=== PATIENT | male | born 1940 | race Caucasian/White ===

== ENCOUNTER 2020-08-19 09:43 | Outpatient (REF) | payer MEDICARE, SELFPAY ==
[2020-08-19 10:37] LABS: Blood Urea Nitrogen 13 mg/dL (9-16); Estimated Glomerular Filt Rate > 60
[2020-08-19 11:00] LABS: Prostate Specific Antigen 0.49 ng/mL (<0.05-4.0)
== END 2020-08-19 09:44 | disposition home or self-care (01) ==
LOC: HO.10HDL 09:43
PROVIDERS: Visit Provider Urology
DX: C61 Malignant neoplasm of prostate (principal)
CPT/HCPCS: 82565; 84153; 84520

== ENCOUNTER → 2020-08-26 09:43 | Outpatient (REF) | payer MEDICARE, SELFPAY ==
--- NOTE | 2020-08-26 | NM_ITS ---
EXAMINATION: [place] BONE SCAN OF THE WHOLE BODY CLINICAL INFORMATION: Prostate cancer. COMPARISON: The previous bone scan dated 04/03/2020 is available for comparison. No recent radiographs are available for comparison. TECHNIQUE: Multiple gamma scintillation camera images of the whole body were performed 3 hours following the intravenous administration of 25 mCi Tc-99m MDP. FINDINGS: In the head, no significant abnormalities are present. In the thoracic cage and upper extremities, there is mildly increased activity in the acromioclavicular and sternoclavicular joints bilaterally and at the glenohumeral articulation of the left shoulder. In the spine, no significant abnormalities are present. In the pelvis, no significant abnormalities are present. In the lower extremities, no significant abnormalities are present. No other definite bony abnormalities are noted. The urinary bladder and faint visualization of both kidneys are noted. Compared to the previous bone scan dated 04/03/2020 some prominence of activity in the humeral heads bilaterally and greater femoral trochanters on the prior study is not evident on the current scan. Otherwise the scan appearance is unchanged. WI/[place] bone scan whole body IMPRESSION: Mild nonspecific abnormalities are noted as described above and these are all likely arthritic or traumatic in etiology. None of these abnormalities is strongly suspicious for metastatic disease.
== END ==
LOC: HO.NUCMED 09:43
PROVIDERS: PCP Internal Medicine; Visit Provider Urology
DX: C61 Malignant neoplasm of prostate (principal)
CPT/HCPCS: 78306; A9503

== ENCOUNTER 2020-09-02 08:48 | Outpatient (REF) | payer MEDICARE, SELFPAY ==
--- NOTE | 2020-09-02 08:53 | CT_ITS ---
EXAMINATION: CT ABDOMEN AND PELVIS WITH CONTRAST CLINICAL INFORMATION: Prostate cancer COMPARISON: Previous CT scan of the abdomen and pelvis December 2018 TECHNIQUE: Multidetector volumetric images were obtained from the superior aspect of the liver through the pubic symphysis following administration 85 mL of Omnipaque 350 intravenous contrast. Sagittal and coronal reformatted images were obtained on the technologist's workstation. Oral contrast: Yes This CT examination was performed using dose optimization techniques as appropriate, variously including the following: *Automated exposure control *Adjustment of mA and/or kV according to patient size (this includes techniques or standardized protocols for targeted exams where dose is matched to indication/reason for exam; i.e. extremities or head) *Use of iterative reconstruction technique DLP: 573 mGy-cm FINDINGS: LUNG BASES: The visualized lung bases are unremarkable. LIVER, GALLBLADDER, AND BILIARY TREE: There is a 2 cm cyst in the lateral segment of the left lobe of the liver that is stable. The liver is otherwise unremarkable. There are gallstones in the gallbladder. There is no biliary duct dilatation. PANCREAS: Unremarkable. SPLEEN: Unremarkable. ADRENAL GLANDS: Unremarkable. KIDNEYS AND URETERS: There is a small 1 cm cyst in the upper pole of the left kidney. The kidneys are otherwise unremarkable. BLADDER: The bladder wall appears slightly trabeculated. The bladder is otherwise unremarkable. GASTROINTESTINAL TRACT: There is diverticulosis of the colon. There is stool throughout the colon questionable for constipation. There is a large right inguinal hernia containing small bowel. The appendix is not identified. The stomach is unremarkable. ABDOMINAL WALL: There is a large right inguinal hernia containing small bowel and fat. There is a small umbilical hernia containing fat. LYMPH NODES: There are no enlarged lymph nodes. There is no ascites. VASCULAR: There is evidence of atherosclerotic disease. There is mild ectasia of the mid abdominal aorta measuring 2.6 cm. No aneurysm is seen. PELVIC VISCERA: The prostate gland does not appear enlarged. Prostate gland measures 3 cm in AP and transverse dimension. OSSEOUS STRUCTURES: There is diffuse sclerotic bone disease. This is new from previous exam. No fracture is seen. CT/CT abdomen pelvis w con IMPRESSION: New diffuse sclerotic bone disease. The prostate gland does not appear enlarged. There is no lymphadenopathy. Large right inguinal hernia containing fat and small bowel. No evidence of obstruction. Diverticulosis and constipation. Stable liver and left renal cyst.
[2020-09-02] MEDS: iohexoL 350 MG/ML 100 ML INFUS..BTL 85 ML IV (11:46)
[2020-09-02] MEDS: Barium Sulfate Oral (Vanilla) 450 ML ORAL.SUSP 900 ML PO (11:47)
== END 2020-09-02 08:49 | disposition home or self-care (01) ==
LOC: HO.CT 08:48
PROVIDERS: PCP Internal Medicine; Visit Provider Urology
DX: C61 Malignant neoplasm of prostate (principal)
CPT/HCPCS: 74177; Q9967

== ENCOUNTER 2020-09-03 08:56 | Outpatient (REF) | payer MEDICARE, SELFPAY ==
[2020-09-03 10:04] LABS: MANUAL DIFF FLAG NO
[2020-09-03 10:18] LABS: Basophils Percent Auto 0.4 % (0-2); Eosinophils Absolute Auto 0.2 X10*3/uL (0.0-0.4); Eosinophils Percent Auto 3.2 % (0-4); Hematocrit 36.5 % (42-52); Hemoglobin 11.8 g/dl (14.0-18.0); Imm Gran Abs Auto 0.02 X10*3/uL (0.00-0.03); Imm Gran Pct Auto 0.4 % (0.0-0.4); Lymphocytes Absolute Auto 1.1 X10*3/uL (1.2-4.9); Lymphocytes Percent Auto 22.7 % (20-40); Mean Corpuscular HGB Conc 32.3 g/dl (31.0-36.0); Mean Corpuscular Hemoglobin 31.2 pg (27.0-33.0); Mean Corpuscular Volume 96.6 fL (80-98); Mean Platelet Volume 9.5 fL (9.4-12.4); Monocytes Absolute Auto 0.6 X10*3/uL (0.1-1.2); Monocytes Percent Auto 11.8 % (2-11); Neutrophils Absolute Auto 3.1 X10*3/uL (2.0-8.3); Neutrophils Percent Auto 61.5 % (45-73); Platelet Count 237 X10*3/uL (160-400); Red Blood Count 3.78 X10*6/uL (4.60-5.80); Red Cell Distribution Width 13.8 % (11.0-16.0)
[2020-09-03 10:37] LABS: Alanine Aminotransferase 14 U/L (0-40); Albumin Level 4.2 g/dL (3.5-5.0); Alkaline Phosphatase 116 U/L (39-117); Anion Gap 11 (12-20); Aspartate Amino Transferase 17 U/L (5-37); Bilirubin Total 0.6 mg/dL (0.0-1.0); Blood Urea Nitrogen 16 mg/dL (9-16); Calcium 8.6 mg/dL (8.4-10.2); Carbon Dioxide 27 mmol/L (22-29); Chloride 105 mmol/L (96-108); Estimated Glomerular Filt Rate > 60; Glucose Random 151 mg/dL (60-115); Potassium 4.4 mmol/l (3.3-5.1); Sodium 139 mmol/L (135-145); Total Protein 7.1 g/dL (6.5-8.0)
[2020-09-03 11:03] LABS: Prostate Specific Antigen 0.58 ng/mL (<0.05-4.0)
== END 2020-09-03 08:57 | disposition home or self-care (01) ==
LOC: HO.10HDL 08:56
PROVIDERS: Visit Provider Internal Medicine Hematology & Oncology
DX: C61 Malignant neoplasm of prostate (principal); C79.51 Secondary malignant neoplasm of bone
CPT/HCPCS: 36415; 80053; 84153; 85025

== ENCOUNTER → 2020-09-09 09:32 | Outpatient (BNVA) | payer MEDICARE, SELFPAY | PROVIDERS: PCP Internal Medicine; Visit Provider Urology | DX: C61 Malignant neoplasm of prostate (principal); C79.51 Secondary malignant neoplasm of bone | CPT/HCPCS: 99212; J9217 ==

== ENCOUNTER 2020-11-24 09:41 | Outpatient (REF) | payer MEDICARE, SELFPAY ==
[2020-11-24 11:16] LABS: MANUAL DIFF FLAG NO
[2020-11-24 11:40] LABS: Alanine Aminotransferase 16 U/L (0-40); Alkaline Phosphatase 91 U/L (39-117); Anion Gap 12 (12-20); Aspartate Amino Transferase 16 U/L (5-37); Bilirubin Total 0.5 mg/dL (0.0-1.0); Blood Urea Nitrogen 17 mg/dL (9-16); Calcium 8.6 mg/dL (8.4-10.2); Carbon Dioxide 26 mmol/L (22-29); Chloride 106 mmol/L (96-108); Cholesterol 132 mg/dL; Estimated Glomerular Filt Rate > 60; Glucose Random 131 mg/dL (60-115); Iron 62 mcg/dL (45-160); Percent Iron Saturation 19 % (15-50); Potassium 4.9 mmol/L (3.3-5.1); Sodium 139 mmol/L (135-145); Total Iron Binding Capacity 323 mcg/dL (228-428); Total Protein 7.5 g/dL (6.5-8.0); Unsaturated Iron Binding 261 ug/dL
[2020-11-24 11:44] LABS: Basophils Percent Auto 0.5 % (0-2); Eosinophils Absolute Auto 0.2 X10*3/uL (0.0-0.4); Eosinophils Percent Auto 3.8 % (0-4); Hematocrit 35.5 % (42-52); Hemoglobin 11.3 g/dl (14.0-18.0); Imm Gran Abs Auto 0.03 X10*3/uL (0.00-0.03); Imm Gran Pct Auto 0.5 % (0.0-0.4); Lymphocytes Absolute Auto 1.1 X10*3/uL (1.2-4.9); Mean Corpuscular HGB Conc 31.8 g/dl (31.0-36.0); Mean Corpuscular Hemoglobin 31.4 pg (27.0-33.0); Mean Corpuscular Volume 98.6 fL (80-98); Mean Platelet Volume 9.7 fL (9.4-12.4); Monocytes Absolute Auto 0.7 X10*3/uL (0.1-1.2); Monocytes Percent Auto 12.1 % (2-11); Neutrophils Absolute Auto 3.5 X10*3/uL (2.0-8.3); Neutrophils Percent Auto 64.1 % (45-73); Platelet Count 234 X10*3/uL (160-400); Red Cell Distribution Width 14.1 % (11.0-16.0); White Blood Count 5.5 X10*3/uL (4.8-10.8)
[2020-11-24 11:49] LABS: Prostate Specific Antigen 0.33 ng/mL (<0.05-4.0)
[2020-11-28 14:22] LABS: Testosterone, Total 10 ng/dL (250-1100)
== END 2020-11-24 09:42 | disposition home or self-care (01) ==
LOC: HO.10HDL 09:41
PROVIDERS: Absent Provider Internal Medicine; Referring Provider Internal Medicine Hematology & Oncology; Visit Provider Urology
DX: C61 Malignant neoplasm of prostate (principal); C79.51 Secondary malignant neoplasm of bone; I10 Essential (primary) hypertension
CPT/HCPCS: 36415; 80053; 82465; 83540; 84153; 84403; 85025

== ENCOUNTER → 2020-12-10 10:31 | Outpatient (BNVA) | payer MEDICARE, SELFPAY | PROVIDERS: PCP Internal Medicine; Visit Provider Urology | DX: Z13.89 Encounter for screening for other disorder (principal) | CPT/HCPCS: Q3014 ==

== ENCOUNTER → 2021-01-28 09:55 | Outpatient (REF) | payer MEDICARE, SELFPAY ==
--- NOTE | ~2021-01-28 | NM_ITS ---
EXAMINATION: [place] BONE SCAN OF THE WHOLE BODY CLINICAL INFORMATION: Prostate neoplasm. COMPARISON: CT bone windows from 09/02/2020 and previous bone scan from 08/26/2020. TECHNIQUE: Multiple gamma scintillation camera images of the whole body were performed 3 hours following the intravenous administration of 26 mCi Tc-99m MDP. FINDINGS: In the head, once again some generalized increase in the skull region. This is not changing from previous. In the thoracic cage and upper extremities, once again generalized increase here without focal abnormality in the thoracic cage region. The appearance of the upper extremities is unchanged. In the spine, once again some generalized increase in the spine but no focal abnormality and no increase from previous. In the pelvis, generalized uptake once again seen in the pelvis but no focal increased from previous. In the lower extremities, once again some areas of uptake seen in the metaphyseal region, similar to previous. There has been no change. No other definite bony abnormalities are noted. There is urinary activity and faint renal activity. [place] bone scan whole body IMPRESSION: Importantly, I feel this scan is not changing from previous exam. There is overall diffuse skeletal uptake with a paucity of renal uptake. When correlated with bone windows from most recent CTs, this is consistent with diffuse bony metastatic disease but again I feel this exam is not changing from 08/26/2020.
== END ==
LOC: HO.NUCMED 09:55
PROVIDERS: PCP Internal Medicine; Visit Provider Urology
DX: C61 Malignant neoplasm of prostate (principal); C79.51 Secondary malignant neoplasm of bone
CPT/HCPCS: 78306; A9503

== ENCOUNTER 2021-02-17 07:34 | Outpatient (REF) | payer MEDICARE, SELFPAY ==
[2021-02-17 10:27] LABS: MANUAL DIFF FLAG NO
[2021-02-17 10:35] LABS: Basophils Percent Auto 0.3 % (0-2); Eosinophils Absolute Auto 0.2 X10*3/uL (0.0-0.4); Eosinophils Percent Auto 3.6 % (0-4); Hematocrit 34.9 % (42-52); Hemoglobin 11.1 g/dl (14.0-18.0); Imm Gran Abs Auto 0.03 X10*3/uL (0.00-0.03); Imm Gran Pct Auto 0.5 % (0.0-0.4); Lymphocytes Percent Auto 17.3 % (20-40); Mean Corpuscular HGB Conc 31.8 g/dl (31.0-36.0); Mean Corpuscular Hemoglobin 31.3 pg (27.0-33.0); Mean Corpuscular Volume 98.3 fL (80-98); Mean Platelet Volume 9.8 fL (9.4-12.4); Monocytes Absolute Auto 0.9 X10*3/uL (0.1-1.2); Monocytes Percent Auto 14.6 % (2-11); Neutrophils Absolute Auto 3.8 X10*3/uL (2.0-8.3); Neutrophils Percent Auto 63.7 % (45-73); Platelet Count 214 X10*3/uL (160-400); Red Blood Count 3.55 X10*6/uL (4.60-5.80); Red Cell Distribution Width 13.8 % (11.0-16.0); White Blood Count 5.9 X10*3/uL (4.8-10.8)
[2021-02-17 10:53] LABS: Alanine Aminotransferase 15 U/L (0-40); Albumin Level 3.9 g/dL (3.5-5.0); Alkaline Phosphatase 89 U/L (39-117); Anion Gap 12 (12-20); Aspartate Amino Transferase 16 U/L (5-37); Bilirubin Total 0.6 mg/dL (0.0-1.0); Blood Urea Nitrogen 19 mg/dL (9-16); Carbon Dioxide 25 mmol/L (22-29); Chloride 105 mmol/L (96-108); Estimated Glomerular Filt Rate > 60; Glucose Random 110 mg/dL (60-115); Potassium 5.1 mmol/L (3.3-5.1); Sodium 137 mmol/L (135-145); Total Protein 7.9 g/dL (6.5-8.0)
[2021-02-20 17:46] LABS: Testosterone, Total 8 ng/dL (250-1100)
== END 2021-02-17 07:35 | disposition home or self-care (01) ==
LOC: HO.10HDL 07:34
PROVIDERS: Internal Medicine Hematology & Oncology; Visit Provider Urology
DX: Z12.5 Encounter for screening for malignant neoplasm of prostate (principal); C61 Malignant neoplasm of prostate; C79.51 Secondary malignant neoplasm of bone; N40.1 Benign prostatic hyperplasia with lower urinary tract symptoms; N13.8 Other obstructive and reflux uropathy
CPT/HCPCS: 36415; 80053; 84153; 84403; 85025

== ENCOUNTER → 2021-03-03 13:55 | Outpatient (BNVA) | payer MEDICARE, SELFPAY | PROVIDERS: PCP Internal Medicine; Visit Provider Urology | DX: C61 Malignant neoplasm of prostate (principal); C79.51 Secondary malignant neoplasm of bone | CPT/HCPCS: 96402; 99212; J9217 ==

== ENCOUNTER 2021-04-27 07:33 | Outpatient (REF) | payer MEDICARE, SELFPAY ==
[2021-04-27 08:11] LABS: MANUAL DIFF FLAG NO
[2021-04-27 08:23] LABS: Basophils Percent Auto 0.5 % (0-2); Eosinophils Absolute Auto 0.2 X10*3/uL (0.0-0.4); Eosinophils Percent Auto 2.6 % (0-4); Hematocrit 36.1 % (42-52); Hemoglobin 11.5 g/dl (14.0-18.0); Imm Gran Abs Auto 0.05 X10*3/uL (0.00-0.03); Imm Gran Pct Auto 0.8 % (0.0-0.4); Lymphocytes Absolute Auto 1.1 X10*3/uL (1.2-4.9); Lymphocytes Percent Auto 18.5 % (20-40); Mean Corpuscular HGB Conc 31.9 g/dl (31.0-36.0); Mean Corpuscular Hemoglobin 31.3 pg (27.0-33.0); Mean Corpuscular Volume 98.4 fL (80-98); Mean Platelet Volume 9.5 fL (9.4-12.4); Monocytes Absolute Auto 0.8 X10*3/uL (0.1-1.2); Monocytes Percent Auto 12.4 % (2-11); Neutrophils Percent Auto 65.2 % (45-73); Platelet Count 219 X10*3/uL (160-400); Red Blood Count 3.67 X10*6/uL (4.60-5.80); Red Cell Distribution Width 14.3 % (11.0-16.0); White Blood Count 6.1 X10*3/uL (4.8-10.8)
[2021-04-27 08:37] LABS: Estimated Average Glucose 111 mg/dL; Hemoglobin A1c % 5.5 %
[2021-04-27 09:04] LABS: Alanine Aminotransferase 11 U/L (0-40); Alkaline Phosphatase 79 U/L (39-117); Anion Gap 13 (12-20); Aspartate Amino Transferase 17 U/L (5-37); Bilirubin Total 0.5 mg/dL (0.0-1.0); Blood Urea Nitrogen 26 mg/dL (9-16); Calcium 9.4 mg/dL (8.4-10.2); Carbon Dioxide 24 mmol/L (22-29); Chloride 109 mmol/L (96-108); Estimated Glomerular Filt Rate > 60; Glucose Random 105 mg/dL (60-115); Sodium 141 mmol/L (135-145)
== END 2021-04-27 07:34 | disposition home or self-care (01) ==
LOC: HO.LAB 07:33
PROVIDERS: PCP Internal Medicine; Visit Provider Internal Medicine
DX: I10 Essential (primary) hypertension (principal); D64.9 Anemia, unspecified; R73.03 Prediabetes
CPT/HCPCS: 36415; 80053; 83036; 85025

== ENCOUNTER 2021-05-26 07:31 | Outpatient (REF) | payer MEDICARE, OTHER, SELFPAY ==
[2021-05-26 10:12] LABS: MANUAL DIFF FLAG NO
[2021-05-26 10:16] LABS: Basophils Percent Auto 0.6 % (0-2); Eosinophils Absolute Auto 0.2 X10*3/uL (0.0-0.4); Eosinophils Percent Auto 3.6 % (0-4); Hematocrit 37.3 % (42-52); Imm Gran Abs Auto 0.06 X10*3/uL (0.00-0.03); Imm Gran Pct Auto 0.9 % (0.0-0.4); Lymphocytes Absolute Auto 1.1 X10*3/uL (1.2-4.9); Lymphocytes Percent Auto 16.4 % (20-40); Mean Corpuscular HGB Conc 32.2 g/dl (31.0-36.0); Mean Corpuscular Hemoglobin 31.5 pg (27.0-33.0); Mean Corpuscular Volume 97.9 fL (80-98); Mean Platelet Volume 9.6 fL (9.4-12.4); Monocytes Absolute Auto 0.8 X10*3/uL (0.1-1.2); Monocytes Percent Auto 11.8 % (2-11); Neutrophils Absolute Auto 4.5 X10*3/uL (2.0-8.3); Neutrophils Percent Auto 66.7 % (45-73); Platelet Count 246 X10*3/uL (160-400); Red Blood Count 3.81 X10*6/uL (4.60-5.80); White Blood Count 6.7 X10*3/uL (4.8-10.8)
[2021-05-26 10:44] LABS: Alanine Aminotransferase 19 U/L (0-40); Alkaline Phosphatase 86 U/L (39-117); Anion Gap 10 (12-20); Aspartate Amino Transferase 18 U/L (5-37); Bilirubin Total 0.5 mg/dL (0.0-1.0); Blood Urea Nitrogen 21 mg/dL (9-16); Calcium 9.2 mg/dL (8.4-10.2); Carbon Dioxide 25 mmol/L (22-29); Chloride 108 mmol/L (96-108); Estimated Glomerular Filt Rate > 60; Glucose Fasting 119 mg/dL (60-99); Potassium 4.9 mmol/L (3.3-5.1); Sodium 138 mmol/L (135-145); Total Protein 7.9 g/dL (6.5-8.0)
[2021-05-26 12:47] LABS: Prostate Specific Antigen Scr 0.14 ng/mL (<0.05-4.0)
== END 2021-05-26 07:32 | disposition home or self-care (01) ==
LOC: HO.10HDL 07:31
PROVIDERS: Visit Provider Internal Medicine Hematology & Oncology
DX: Z12.5 Encounter for screening for malignant neoplasm of prostate (principal); C61 Malignant neoplasm of prostate; C79.51 Secondary malignant neoplasm of bone
CPT/HCPCS: 36415; 80053; 84153; 85025

== ENCOUNTER 2021-05-27 07:35 | Outpatient (REF) | payer MEDICARE, OTHER, SELFPAY ==
[2021-05-27 11:38] LABS: Prostate Specific Antigen 0.14 ng/mL (<0.05-4.0)
[2021-06-02 12:06] LABS: Testosterone, Total 7 ng/dL (250-1100)
== END 2021-05-27 07:36 | disposition home or self-care (01) ==
LOC: HO.10HDL 07:35
PROVIDERS: Visit Provider Urology
DX: C61 Malignant neoplasm of prostate (principal); C79.51 Secondary malignant neoplasm of bone
CPT/HCPCS: 36415; 84153; 84403

== ENCOUNTER → 2021-06-11 08:48 | Outpatient (BNVA) | payer MEDICARE, OTHER, SELFPAY | PROVIDERS: PCP Internal Medicine; Visit Provider Urology | DX: C61 Malignant neoplasm of prostate (principal); C79.51 Secondary malignant neoplasm of bone; N40.1 Benign prostatic hyperplasia with lower urinary tract symptoms | CPT/HCPCS: Q3014 ==

== ENCOUNTER 2021-07-08 08:37 | Outpatient (REF) | payer MEDICARE, OTHER, SELFPAY ==
--- NOTE | ~2021-07-08 | CT_ITS ---
EXAMINATION: CT ABDOMEN AND PELVIS WITHOUT CONTRAST CLINICAL INFORMATION: Prostate cancer COMPARISON: Previous CT of the abdomen and pelvis most recent August 2020 TECHNIQUE: Multidetector volumetric imaging was performed from the superior aspect of the liver through the pubic symphysis. Sagittal and coronal reformatted images were obtained on the technologist's workstation. This CT examination was performed using dose optimization techniques as appropriate, variously including the following: *Automated exposure control *Adjustment of mA and/or kV according to patient size (this includes techniques or standardized protocols for targeted exams where dose is matched to indication/reason for exam; i.e. extremities or head) *Use of iterative reconstruction technique DLP: 584 mGy-cm FINDINGS: LUNG BASES: The visualized lung bases are unremarkable. LIVER, GALLBLADDER, AND BILIARY TREE: There is a 2 cm cyst in the lateral segment of the left lobe of the liver that is stable. The liver is otherwise unremarkable. There are gallstones in the gallbladder. There is no biliary ductal dictation. PANCREAS: Unremarkable. SPLEEN: Unremarkable. ADRENAL GLANDS: Unremarkable. KIDNEYS AND URETERS: The kidneys are normal in size, shape, and attenuation. No hydronephrosis, hydroureter, or calculi seen. There is a 1 cm low-attenuation lesion in the upper pole of the left kidney that is stable prior exams and likely represents a cyst. BLADDER: Not optimally distended. There may be mild diffuse bladder wall thickening. GASTROINTESTINAL TRACT: There is diverticulosis of the colon. There is a large right inguinal hernia containing small bowel. There is no evidence of obstruction. Follow large bowel are otherwise unremarkable. May be a small hiatal hernia. Stomach is otherwise normal. ABDOMINAL WALL: There is a small umbilical hernia containing fat. There is a large right inguinal hernia containing fat and small bowel. LYMPH NODES: Normal. VASCULAR: There is evidence of atherosclerotic disease. No aneurysm is seen. PELVIC VISCERA: The prostate gland does not appear enlarged. No pelvic mass is seen. OSSEOUS STRUCTURES: There is diffuse sclerotic disease. This does not appear appreciably changed from most recent exam August 2020. No fracture is seen. CT/CT abdomen pelvis wo con IMPRESSION: No change from prior exam. Diffuse sclerotic disease bone disease. Normal size prostate gland. No adenopathy. Large right inguinal hernia containing fat and small bowel. Diverticulosis. Liver and left renal cyst.
== END 2021-07-08 08:38 | disposition home or self-care (01) ==
LOC: HO.CT 08:37
PROVIDERS: PCP Internal Medicine; Visit Provider Urology
DX: C61 Malignant neoplasm of prostate (principal); C79.51 Secondary malignant neoplasm of bone
CPT/HCPCS: 74176

== ENCOUNTER → 2021-07-15 10:48 | Outpatient (REF) | payer MEDICARE, OTHER, SELFPAY ==
--- NOTE | ~2021-07-15 | NM_ITS ---
EXAMINATION: [place] BONE SCAN OF THE WHOLE BODY CLINICAL INFORMATION: Malignant neoplasm of prostate. COMPARISON: Whole body bone scan 01/28/2021. TECHNIQUE: Multiple gamma scintillation camera images of the whole body were performed 2 hours and 30 minutes following the intravenous administration of 26 mCi Tc-99m MDP. FINDINGS: In the head, mild global calvarial activity similar to previous study. No focal abnormality. In the thoracic cage and upper extremities, no abnormal activity seen in the thoracic cage except for mild activity along the sternomanubrial joint. In the spine, mild increased activity seen in the thoracic and lumbar spine but no focal activity seen. In the pelvis, normal symmetric activity in bilateral SI joints. No focal abnormality seen in the pelvis. . In the lower extremities, there is mild increased activity seen in both knee joints and tibia, similar to previous study. No other definite bony abnormalities are noted. The urinary bladder and faint visualization of both kidneys are noted. NM/[place] bone scan whole body IMPRESSION: No abnormal skeletal activity seen to suspect any metastatic disease at this time. The findings are similar to the last bone scan 01/28/2021.
== END ==
LOC: HO.NUCMED 10:48
PROVIDERS: Visit Provider Urology
DX: C61 Malignant neoplasm of prostate (principal)
CPT/HCPCS: 78306; A9503

== ENCOUNTER 2021-07-29 08:20 | Outpatient (REF) | payer MEDICARE, OTHER, SELFPAY ==
--- NOTE | ~2021-07-29 | MM_ITS ---
EXAMINATION: BONE DENSITOMETRY CLINICAL INDICATION: Osteopenia. Male, age 80. Prostate cancer with osseous metastases. COMPARISON: None (current study represents initial baseline exam). Comparison is made with CT abdomen and pelvis 07/08/2021; whole body bone scan 07/15/2021 TECHNIQUE: Using a [employer] DXA System (software version: 13.1) manufactured by [employer], dual-energy x-ray absorptiometry was performed of the lumbar spine and left hip. The images are of good technical quality. Summary results are attached. FINDINGS: AP SPINE L1-L4: There are diffuse mottled sclerotic lesions in lumbar spine from the prostate disease which may cause overestimation of the lumbar bone mineral density. BMD 1.508 g/cm2, Z-score 3.2, T-score 2.4, normal. LEFT FEMUR, NECK: BMD 1.013 g/cm2, Z-score 1.2, T-score -0.4, normal. LEFT FEMUR, TOTAL: BMD 1.052 g/cm2, Z-score 0.9, T-score -0.3, normal. IDENTIFIED RISK FACTORS: None listed. HISTORY OF FRACTURE: None listed. MEDICATIONS: None listed. MM/XR DEXA axial skeleton IMPRESSION: 1. DIAGNOSIS: Normal bone density based on the lowest T-score value of -0.4 in the femoral neck applying World Health Organization criteria. Comment: There are diffuse sclerotic bone disease on recent CT scan, greatest in the spine but also involving the hips. This may cause overestimation of the bone mineral density. 2. 10-YEAR FRACTURE RISK PREDICTION, FRAX: Major osteoporotic fracture (clinical spine, forearm, hip or shoulder) 5.6%. Hip fracture 1.6%. 3. Treatment Recommendations: NOF guidelines recommend consideration for treatment in postmenopausal women and men age 50 and older presenting with the following: -A hip or vertebral (clinical or morphometric) fracture. -T-score less than or equal to -2.5 at the femoral neck or spine after appropriate evaluation to exclude secondary causes. -Low bone mass at the hip or spine and a 10-year fracture probability by FRAX of greater than or equal to 3% for hip fracture or greater than or equal to 20% for major osteoporotic fracture based on the [place] adapted WHO algorithm. 4. Other Recommendations: All treatment decisions require clinical judgment and consideration of individual patient factors, including patient preferences, comorbidities, previous drug use, risk factors not captured in the FRAX model (e.g. frailty, falls, vitamin D deficiency, increased bone turnover, interval significant decline in bone density) and possible under or overestimation of fracture risk by FRAX. FUTURE SCAN RECOMMENDATION: People with diagnosed cases of osteoporosis or at high risk for fracture should have regular bone mineral density tests. For patients eligible for Medicare, routine testing is allowed once every 2 years. The testing frequency can be increased to one year for patients who have rapidly progressing disease, those who are receiving or discontinuing medical therapy to restore bone mass, or have additional risk factors.
== END 2021-07-29 08:21 | disposition home or self-care (01) ==
LOC: HO.MAMMO 08:20
PROVIDERS: Visit Provider Urology
DX: Z13.820 Encounter for screening for osteoporosis (principal); M85.89 Other specified disorders of bone density and structure, multiple sites; C61 Malignant neoplasm of prostate; C79.51 Secondary malignant neoplasm of bone
CPT/HCPCS: 77080

== ENCOUNTER 2021-08-17 07:31 | Outpatient (REF) | payer MEDICARE, OTHER, SELFPAY ==
[2021-08-17 10:08] LABS: MANUAL DIFF FLAG NO
[2021-08-17 10:13] LABS: Basophils Percent Auto 0.5 % (0-2); Eosinophils Absolute Auto 0.3 X10*3/uL (0.0-0.4); Hematocrit 36.7 % (42.0-52.0); Hemoglobin 11.7 g/dl (14.0-18.0); Imm Gran Abs Auto 0.06 X10*3/uL (0.00-0.03); Imm Gran Pct Auto 0.7 % (0.0-0.4); Lymphocytes Absolute Auto 1.2 X10*3/uL (1.2-4.9); Lymphocytes Percent Auto 13.7 % (20-40); Mean Corpuscular HGB Conc 31.9 g/dl (31.0-36.0); Mean Corpuscular Hemoglobin 31.5 pg (27.0-33.0); Mean Corpuscular Volume 98.7 fL (80.0-98.0); Mean Platelet Volume 9.6 fL (9.4-12.4); Monocytes Absolute Auto 0.9 X10*3/uL (0.1-1.2); Neutrophils Absolute Auto 6.2 x10*3/uL (2.0-8.3); Neutrophils Percent Auto 72.1 % (45-73); Platelet Count 237 X10*3/uL (160-400); Red Blood Count 3.72 X10*6/uL (4.60-5.80); Red Cell Distribution Width 13.9 % (11.0-16.0); White Blood Count 8.6 X10*3/uL (4.8-10.8)
[2021-08-17 10:25] LABS: Alanine Aminotransferase 28 U/L (0-40); Albumin Level 3.8 g/dL (3.5-5.0); Alkaline Phosphatase 95 U/L (39-117); Anion Gap 11 (12-20); Aspartate Amino Transferase 26 U/L (5-37); Bilirubin Total 0.4 mg/dL (0.0-1.0); Blood Urea Nitrogen 14 mg/dL (9-16); Calcium 8.8 mg/dL (8.4-10.2); Carbon Dioxide 27 mmol/L (22-29); Chloride 107 mmol/L (96-108); Cholesterol 142 mg/dL; Estimated Glomerular Filt Rate > 60; Glucose Fasting 119 mg/dL (60-99); HDL Cholesterol 25 mg/dL; LDL Cholesterol Calculated 78 mg/dl; Potassium 4.6 mmol/L (3.3-5.1); Sodium 140 mmol/L (135-145); Triglycerides 199 mg/dL
== END 2021-08-17 07:32 | disposition home or self-care (01) ==
LOC: HO.10HDL 07:31
PROVIDERS: Visit Provider Internal Medicine
DX: I10 Essential (primary) hypertension (principal); D64.9 Anemia, unspecified; C61 Malignant neoplasm of prostate
CPT/HCPCS: 36415; 80053; 80061; 85025

== ENCOUNTER 2021-08-24 08:48 | Outpatient (REF) | payer MEDICARE, OTHER, SELFPAY ==
[2021-08-24 10:51] LABS: Alanine Aminotransferase 26 U/L (0-40); Albumin Level 3.8 g/dL (3.5-5.0); Alkaline Phosphatase 88 U/L (39-117); Anion Gap 12 (12-20); Aspartate Amino Transferase 22 U/L (5-37); Bilirubin Total 0.4 mg/dL (0.0-1.0); Blood Urea Nitrogen 16 mg/dL (9-16); Calcium 9.3 mg/dL (8.4-10.2); Carbon Dioxide 25 mmol/L (22-29); Chloride 107 mmol/L (96-108); Estimated Glomerular Filt Rate > 60; Glucose Fasting 107 mg/dL (60-99); Potassium 4.5 mmol/L (3.3-5.1); Sodium 139 mmol/L (135-145); Total Protein 8.3 g/dL (6.5-8.0)
[2021-08-24 11:20] LABS: Prostate Specific Antigen 0.14 ng/mL (<0.05-4.0)
[2021-08-27 16:17] LABS: Testosterone, Total 6 ng/dL (250-1100)
== END 2021-08-24 08:49 | disposition home or self-care (01) ==
LOC: HO.10HDL 08:48
PROVIDERS: Absent Provider Internal Medicine Hematology & Oncology; Visit Provider Urology
DX: Z12.5 Encounter for screening for malignant neoplasm of prostate (principal); C61 Malignant neoplasm of prostate; C79.51 Secondary malignant neoplasm of bone
CPT/HCPCS: 36415; 80053; 84153; 84403

== ENCOUNTER → 2021-09-10 11:42 | Outpatient (BNVA) | payer MEDICARE, OTHER, SELFPAY | PROVIDERS: PCP Internal Medicine; Visit Provider Urology | DX: N40.1 Benign prostatic hyperplasia with lower urinary tract symptoms (principal); C61 Malignant neoplasm of prostate; C79.51 Secondary malignant neoplasm of bone | CPT/HCPCS: 96402; 99212; J9217 ==

== ENCOUNTER 2021-11-13 10:02 | Outpatient (REF) | payer MEDICARE, OTHER, SELFPAY ==
[2021-11-13 10:53] LABS: MANUAL DIFF FLAG NO
[2021-11-13 10:56] LABS: Basophils Percent Auto 0.6 % (0-2); Eosinophils Absolute Auto 0.3 X10*3/uL (0.0-0.4); Eosinophils Percent Auto 4.8 % (0-4); Hematocrit 37.3 % (42.0-52.0); Hemoglobin 12.4 g/dl (14.0-18.0); Imm Gran Abs Auto 0.06 X10*3/uL (0.00-0.03); Imm Gran Pct Auto 0.9 % (0.0-0.4); Lymphocytes Absolute Auto 1.2 X10*3/uL (1.2-4.9); Lymphocytes Percent Auto 19.1 % (20-40); Mean Corpuscular HGB Conc 33.2 g/dl (31.0-36.0); Mean Corpuscular Hemoglobin 32.3 pg (27.0-33.0); Mean Corpuscular Volume 97.1 fL (80.0-98.0); Mean Platelet Volume 9.5 fL (9.4-12.4); Monocytes Absolute Auto 0.7 X10*3/uL (0.1-1.2); Monocytes Percent Auto 11.2 % (2-11); Neutrophils Absolute Auto 4.1 x10*3/uL (2.0-8.3); Neutrophils Percent Auto 63.4 % (45-73); Platelet Count 233 X10*3/uL (160-400); Red Blood Count 3.84 X10*6/uL (4.60-5.80); Red Cell Distribution Width 13.8 % (11.0-16.0); White Blood Count 6.5 X10*3/uL (4.8-10.8)
[2021-11-13 11:48] LABS: Alanine Aminotransferase 33 U/L (0-40); Albumin Level 3.8 g/dL (3.5-5.0); Alkaline Phosphatase 90 U/L (39-117); Anion Gap 11 (12-20); Aspartate Amino Transferase 26 U/L (5-37); Bilirubin Total 0.4 mg/dL (0.0-1.0); Blood Urea Nitrogen 17 mg/dL (9-16); Calcium 9.4 mg/dL (8.4-10.2); Carbon Dioxide 27 mmol/L (22-29); Chloride 104 mmol/L (96-108); Estimated Glomerular Filt Rate > 60; Glucose Random 108 mg/dL (60-115); Potassium 5.1 mmol/L (3.3-5.1); Sodium 137 mmol/L (135-145); Total Protein 8.7 g/dL (6.5-8.0)
[2021-11-13 12:15] LABS: Prostate Specific Antigen 0.11 ng/mL (<0.05-4.0)
[2021-11-19 20:35] LABS: Testosterone, Total 5 ng/dL (250-1100)
== END 2021-11-13 10:03 | disposition home or self-care (01) ==
LOC: HO.10HDLR 10:02
PROVIDERS: Absent Provider Urology; Visit Provider Internal Medicine Hematology & Oncology
DX: Z12.5 Encounter for screening for malignant neoplasm of prostate (principal); N13.8 Other obstructive and reflux uropathy; N40.1 Benign prostatic hyperplasia with lower urinary tract symptoms; C61 Malignant neoplasm of prostate
CPT/HCPCS: 36415; 80053; 84153; 84403; 85025

== ENCOUNTER 2021-11-30 07:30 | Outpatient (REF) | payer MEDICARE, OTHER, SELFPAY ==
[2021-11-30 10:22] LABS: MANUAL DIFF FLAG NO
[2021-11-30 10:56] LABS: Basophils Percent Auto 0.5 % (0-2); Eosinophils Absolute Auto 0.3 X10*3/uL (0.0-0.4); Eosinophils Percent Auto 3.1 % (0-4); Hematocrit 37.9 % (42.0-52.0); Imm Gran Abs Auto 0.04 X10*3/uL (0.00-0.03); Imm Gran Pct Auto 0.5 % (0.0-0.4); Lymphocytes Absolute Auto 1.2 X10*3/uL (1.2-4.9); Lymphocytes Percent Auto 14.2 % (20-40); Mean Corpuscular HGB Conc 31.7 g/dl (31.0-36.0); Mean Corpuscular Hemoglobin 31.3 pg (27.0-33.0); Mean Corpuscular Volume 98.7 fL (80.0-98.0); Mean Platelet Volume 9.5 fL (9.4-12.4); Monocytes Absolute Auto 0.9 X10*3/uL (0.1-1.2); Monocytes Percent Auto 11.1 % (2-11); Neutrophils Absolute Auto 5.7 x10*3/uL (2.0-8.3); Neutrophils Percent Auto 70.6 % (45-73); Platelet Count 262 X10*3/uL (160-400); Red Blood Count 3.84 X10*6/uL (4.60-5.80); Red Cell Distribution Width 13.9 % (11.0-16.0); White Blood Count 8.1 X10*3/uL (4.8-10.8)
[2021-11-30 11:24] LABS: Alanine Aminotransferase 19 U/L (0-40); Albumin Level 3.8 g/dL (3.5-5.0); Alkaline Phosphatase 86 U/L (39-117); Anion Gap 12 (12-20); Aspartate Amino Transferase 21 U/L (5-37); Bilirubin Total 0.7 mg/dL (0.0-1.0); Blood Urea Nitrogen 18 mg/dL (9-16); Calcium 9.5 mg/dL (8.4-10.2); Carbon Dioxide 26 mmol/L (22-29); Chloride 104 mmol/L (96-108); Estimated Glomerular Filt Rate > 60; Glucose Random 106 mg/dL (60-115); Potassium 4.6 mmol/L (3.3-5.1); Sodium 137 mmol/L (135-145); Total Protein 8.3 g/dL (6.5-8.0)
[2021-11-30 11:46] LABS: Prostate Specific Antigen Scr 0.13 ng/mL (<0.05-4.0)
== END 2021-11-30 07:31 | disposition home or self-care (01) ==
LOC: HO.10HDL 07:30
PROVIDERS: Visit Provider Internal Medicine Hematology & Oncology
DX: C61 Malignant neoplasm of prostate (principal); C79.51 Secondary malignant neoplasm of bone; Z12.5 Encounter for screening for malignant neoplasm of prostate
CPT/HCPCS: 36415; 80053; 84153; 85025

== ENCOUNTER 2021-12-15 09:25 | Outpatient (AMB) | payer MEDICARE, OTHER, SELFPAY ==
--- NOTE | 2021-12-15 09:26 | A.OFFVIS_ITS ---
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 He is a patient of Dr. Garza. 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 Prostate cancer was diagnosed January 2020 - [place] on CT for respiratory issues - found to have extensive metastatic disease Diagnosis was reached by PSA at diagnosis 1800. The D'Claude (NCCN) risk category is High Risk (PSA > 20, Gl 8+, T3). Therapy for metastatic/CRPC included 03/15 Antiandrogen, Bicalutamide 03/21/20 GnRH. Recent labs included a PSA (prostate-specific antigen) 05/15 1.5. - 09/14 0.6 - 12/14 PSA 0.3, T 10, 03/16 PSA 0.2, T 8, 06/16 PSA 0.14 T 7, 12/15 0.13 T 5 Recent imaging included 03/15, a CT (computed tomography) scan 03/15 - sclerotic spinal lesions, 09/14 unchanged - Bone Scan 09/14 no focal area of enhancement - 03/16 no progression of metastatic disease, 09/15 bone scan no progression of disease - DEXA scan 09/15 osteoporosis Therapeutic plan: Continue with GnRH, antiandrogen and surveillance [facility] Medical History Neurogenic bladder H/O urinary retention Benign prostatic hyperplasia with lower urinary tract symptoms Feeling of incomplete bladder emptying Social History Alcohol intake: never Review of Systems Const Denies chills and Denies fever(s) Card Reports no additional complaints and Denies syncope Resp Denies cough GI Denies abdominal pain and Denies heartburn Reports as per HPI and Denies change in libido Neuro Denies syncope Psych Denies change in libido Endo Denies change in libido Physical Exam Const General: cooperative, healthy appearing, comfortable and no acute distress Orientation/consciousness: patient oriented x3 HEENT Face and sinus: Yes normal facial exam Mouth: moist mucous membranes Neck Neck: Yes normal visual inspection, Yes full ROM and Yes trachea midline Chest Chest palpation & inspection: normal inspection of the chest Resp Effort & Inspection: normal respiratory effort, able to speak in complete sentences and no respiratory distress GI Inspection: Yes normal to inspection Back/Spine/Pelvis Cervical Spine: normal cervical lordosis Thoracic/Lumbar Spine: thoracic and lumbar spine normal to inspection Skin General skin exam: no rashes or lesions noted Neuro General: patient oriented x3, gait normal, tone normal and moves all extremities Extrem General: Yes normal to inspection and Yes capillary refill normal Office Meds Prolia 60 mg/mL subcutaneous syringe Performing Provider: Lukas Fish MD [facility] Administered by: Shikha Monge RN on 12/15/21 10:20 Dose Route Admin Location Dispensed Lot Number Expiration Date [facility] Admitting Clerk 60 mg subcut left upper arm 1 mL [id number] 03/26/24 Assessment & Plan Assessment & Plan (1) Prostate cancer metastatic to bone: Code(s): C61 - Malignant neoplasm of prostate; C79.51 - Secondary malignant neoplasm of bone Plan 3 month follow-up with injection and imaging Orders: Orders AMB Denosumab Injection Practice Supplied 12/15/21 C61 - Malignant neoplasm of prostate, C79.51 - Secondary malignant neoplasm of bone Prostate Specific Antigen 3 Months C61 - Malignant neoplasm of prostate, C79.51 - Secondary malignant neoplasm of bone Testosterone, Total 3 Months C61 - Malignant neoplasm of prostate, C79.51 - Secondary malignant neoplasm of bone AMB Urinalysis Automated 12/15/21 Z13.9 - Encounter for screening, unspecified AMB Post Void Residual by ultrasound 12/15/21 N40.1 - Benign prostatic hyperplasia with lower urinary tract symptoms NM bone scan whole body 3 Months C61 - Malignant neoplasm of prostate, C79.51 - Secondary malignant neoplasm of bone Patient Instructions: The patient had an opportunity to ask questions regarding treatment plan. All questions were answered. Imaging studies, laboratory studies and physical exam results were discussed and reviewed in detail. No major barriers to understanding were identified. The patient expressed understanding and agreement with the above treatment plan. The patient is aware they should contact our office by phone for worsening of their current condition or the appearance of new symptoms. Compliance is encouraged with any medications and followup testing that is ordered. It is a privilege to be allowed the opportunity to participate in the urologic care of your patient. If you have any questions or concerns regarding treatment for the above conditions please do not hesitate to contact me. The office telephone contact is [phone]. This note is constructed using voice recognition software. While every effort has been made to ensure accuracy inspectors and regulatory officers errors may have been included. Yours sincerely, Dr Lukas Fish MD, FRAND[facility] Coding Level of Care Code Est Pt Level 3 (32801) Diagnoses Prostate cancer metastatic to bone C61; C79.51
== END 2021-12-15 11:03 | disposition home or self-care (01) ==
LOC: HO.HUSH 09:25
PROVIDERS: PCP Internal Medicine; Visit Provider Urology
DX: C61 Malignant neoplasm of prostate (principal); C79.51 Secondary malignant neoplasm of bone
CPT/HCPCS: 99499

== ENCOUNTER → 2021-12-15 09:25 | Outpatient (BNVA) | payer MEDICARE, OTHER, SELFPAY | PROVIDERS: PCP Internal Medicine; Visit Provider Urology | DX: C61 Malignant neoplasm of prostate (principal); C79.51 Secondary malignant neoplasm of bone | CPT/HCPCS: 96372; J0897 ==

== ENCOUNTER 2021-12-21 07:31 | Outpatient (REF) | payer MEDICARE, OTHER, SELFPAY ==
[2021-12-21 10:47] LABS: MANUAL DIFF FLAG NO
[2021-12-21 11:04] LABS: Basophils Absolute Auto 0.1 X10*3/uL (0.0-0.2); Basophils Percent Auto 0.6 % (0-2); Eosinophils Absolute Auto 0.4 X10*3/uL (0.0-0.4); Eosinophils Percent Auto 4.4 % (0-4); Hematocrit 38.9 % (42.0-52.0); Hemoglobin 12.1 g/dl (14.0-18.0); Imm Gran Abs Auto 0.06 X10*3/uL (0.00-0.03); Imm Gran Pct Auto 0.7 % (0.0-0.4); Lymphocytes Absolute Auto 1.3 X10*3/uL (1.2-4.9); Lymphocytes Percent Auto 15.3 % (20-40); Mean Corpuscular HGB Conc 31.1 g/dl (31.0-36.0); Mean Corpuscular Volume 99.7 fL (80.0-98.0); Mean Platelet Volume 9.3 fL (9.4-12.4); Monocytes Absolute Auto 0.9 X10*3/uL (0.1-1.2); Monocytes Percent Auto 11.4 % (2-11); Neutrophils Absolute Auto 5.5 x10*3/uL (2.0-8.3); Neutrophils Percent Auto 67.6 % (45-73); Platelet Count 229 X10*3/uL (160-400); Red Cell Distribution Width 14.1 % (11.0-16.0); White Blood Count 8.2 X10*3/uL (4.8-10.8)
[2021-12-21 11:21] LABS: Alanine Aminotransferase 23 U/L (0-40); Albumin Level 3.9 g/dL (3.5-5.0); Alkaline Phosphatase 90 U/L (39-117); Anion Gap 9 (12-20); Aspartate Amino Transferase 19 U/L (5-37); Bilirubin Total 0.7 mg/dL (0.0-1.0); Blood Urea Nitrogen 18 mg/dL (9-16); Calcium 8.5 mg/dL (8.4-10.2); Carbon Dioxide 23 mmol/L (22-29); Chloride 111 mmol/L (96-108); Estimated Glomerular Filt Rate > 60; Glucose Random 108 mg/dL (60-115); Iron 79 mcg/dL (45-160); Percent Iron Saturation 24 % (15-50); Potassium 5.1 mmol/L (3.3-5.1); Sodium 138 mmol/L (135-145); Total Iron Binding Capacity 333 mcg/dL (228-428); Total Protein 8.4 g/dL (6.5-8.0); Unsaturated Iron Binding 254 ug/dL
== END 2021-12-21 07:32 | disposition home or self-care (01) ==
LOC: HO.10HDL 07:31
PROVIDERS: PCP Internal Medicine; Visit Provider Internal Medicine
DX: I10 Essential (primary) hypertension (principal); D64.9 Anemia, unspecified
CPT/HCPCS: 36415; 80053; 83540; 85025

== ENCOUNTER 2022-02-02 23:19 | Emergency (ER) | payer MEDICARE, OTHER, SELFPAY ==
--- NOTE | ~2022-02-02 | XR_ITS ---
EXAMINATION: XR CHEST CLINICAL INFORMATION: Shortness of breath COMPARISON: CT of abdomen pelvis 07/08/2021. Nuclear medicine bone scan 07/15/2021 TECHNIQUE: Frontal view of the chest was obtained. 11:43 PM FINDINGS: Lungs are normally aerated. Cardiac mediastinal contours normal. Heart size normal. 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 No displaced fracture. XR/XR chest 1V IMPRESSION: No acute abnormality of the chest.
[2022-02-02 23:38] VITALS: BP 138/90; PULSE 81; RESP 18; TEMP 35.9; O2SAT 98; BMI 25.0
[2022-02-02 23:40] LABS: MANUAL DIFF FLAG NO
[2022-02-02 23:43] LABS: Basophils Percent Auto 0.2 % (0-2); Eosinophils Absolute Auto 0.2 X10*3/uL (0.0-0.4); Eosinophils Percent Auto 3.6 % (0-4); Hematocrit 35.2 % (42.0-52.0); Hemoglobin 11.2 g/dl (14.0-18.0); Imm Gran Abs Auto 0.02 X10*3/uL (0.00-0.03); Imm Gran Pct Auto 0.3 % (0.0-0.4); Lymphocytes Absolute Auto 1.6 X10*3/uL (1.2-4.9); Lymphocytes Percent Auto 25.1 % (20-40); Mean Corpuscular HGB Conc 31.8 g/dl (31.0-36.0); Mean Corpuscular Hemoglobin 31.6 pg (27.0-33.0); Mean Corpuscular Volume 99.4 fL (80.0-98.0); Monocytes Absolute Auto 0.8 X10*3/uL (0.1-1.2); Monocytes Percent Auto 12.1 % (2-11); Neutrophils Absolute Auto 3.8 x10*3/uL (2.0-8.3); Neutrophils Percent Auto 58.7 % (45-73); Platelet Count 197 X10*3/uL (160-400); Red Blood Count 3.54 X10*6/uL (4.60-5.80); Red Cell Distribution Width 14.6 % (11.0-16.0); White Blood Count 6.5 X10*3/uL (4.8-10.8)
[2022-02-02 23:56] LABS: COVID-19 Test Negative (Negative)
[2022-02-02 23:57] LABS: IDNOW Serial# 55D5AD1C; Influenza A Negative (Negative); Influenza B2 Negative (Negative)
[2022-02-02 23:59] LABS: Alanine Aminotransferase 20 U/L (0-40); Albumin Level 3.6 g/dL (3.5-5.0); Alkaline Phosphatase 83 U/L (39-117); Anion Gap 11 (12-20); Aspartate Amino Transferase 23 U/L (5-37); Bilirubin Total 0.2 mg/dL (0.0-1.0); Blood Urea Nitrogen 18 mg/dL (9-16); Calcium 8.1 mg/dL (8.4-10.2); Carbon Dioxide 21 mmol/L (22-29); Chloride 111 mmol/L (96-108); Creatinine Clr Calc Pharmacy 55.6; Estimated Glomerular Filt Rate > 60; Glucose Random 146 mg/dL (60-115); Potassium 4.2 mmol/L (3.3-5.1); Sodium 139 mmol/L (135-145); Total Protein 8.2 g/dL (6.5-8.0)
--- NOTE | 2022-02-03 00:47 | ED_ITS ---
HPI - General Adult General Chief complaint: Dyspnea Stated complaint: wheezing; prostate cancer pt Time Seen by Provider: 02/03/22 00:33 Source: patient and family Mode of arrival: ambulatory Limitations: no limitations History of Present Illness HPI narrative: Patient comes to the emergency room complaining of productive cough for approximately 1 week. Over the last 3 days, the cough has gradually been getting worse. Patient denies chest pain, no shortness of breath. No fever or chills. Related Data Home Medications Medication Instructions Recorded Confirmed enzalutamide 40 mg capsule 160 mg PO DAILY 12/10/20 fluoride (sodium) 1.1 % dental appl PO BEDTIME 12/10/20 cream lisinopril 5 mg tablet 5 mg PO DAILY 12/10/20 omeprazole 20 mg capsule,delayed 20 mg PO DAILY 12/10/20 release ropinirole 2 mg tablet 2 mg PO BEDTIME 12/10/20 amlodipine 5 mg tablet 5 mg PO DAILY 06/11/21 erythromycin-benzoyl peroxide 3 TOPICAL 06/11/21 %-5 % topical gel lisinopril 10 mg tablet 10 mg PO DAILY 06/11/21 Previous Rx's Medication Instructions Recorded tamsulosin 0.4 mg capsule 0.4 mg PO BEDTIME 90 Days #90 cap 03/05/21 cholecalciferol (vitamin D3) 10 800 unit PO DAILY 90 Days #180 tab 09/10/21 mcg (400 unit) tablet finasteride 5 mg tablet 5 mg PO DAILY 90 Days #90 tab 01/28/22 calcium carbonate 500 mg calcium 500 mg PO BID 90 Days #180 tab 02/02/22 (1,250 mg) chewable tablet (Calcium 500) benzonatate 100 mg capsule 100 mg PO TID PRN #12 cap 02/03/22 prednisone 50 mg tablet 50 mg PO DAILY #3 tab 02/03/22 Allergies Allergy/AdvReac Type Severity Reaction Status Date / Time No Known Allergies Allergy Verified 02/02/22 23:38 [No Known Allergies*] Review of Systems 2 Review of Systems: Constitutional : No Weight loss, No Fever, No Chills, No Night Sweats, No Fatigue, No Malaise ENT/Mouth : No Hearing loss, No Ear Pain, No Nasal Congestion, No Sinus Pain, No Hoarseness, No sore throat, No Rhinorrhea, No Swallowing Difficulty Eyes: No Eye Pain, No Swelling, No Redness, No Foreign Body, No Discharge, No Vision Changes Cardiovascular : No Chest Pain, No SOB, No Dyspnea on Exertion, No Orthopnea, No Edema, No Palpitations Respiratory : Productive Cough, No Sputum, No Wheezing, No Smoke Exposure, No Dyspnea Gastrointestinal : No Nausea, No Vomiting, No Diarrhea, No Constipation, No abdominal Pain, No Hematochezia, No Melena Genitourinary : no irregular bleeding, No Dysuria, No Urinary Frequency, No Hematuria, No Urinary Incontinence, No Urgency, No Flank Pain, No Urinary Flow Changes, No Hesitancy Musculoskeletal : No joint pain, No Myalgias, No Joint Swelling Skin : No Skin Lesions, No rash Neuro : No Weakness, No Numbness, No Paresthesias, No Loss of Consciousness, No Dizziness, No Headache Psych : No Anxiety/Panic, No Depression, No SI/HI/AH/VH, No Social Issues, Heme/Lymph: No Bruising, No Bleeding,No Lymphadenopathy Endocrine : No Polyuria, No Polydipsia, No Temperature Intolerance [facility] Past Medical History Medical History Benign prostatic hyperplasia with lower urinary tract symptoms Feeling of incomplete bladder emptying H/O urinary retention Neurogenic bladder Social History Social History Advance Directives: No Physical Exam ED Vital Signs: Vital Signs - 24 hr 02/02/22 23:38 Temperature 96.7 F L Pulse Rate 81 Respiratory Rate 18 Blood Pressure 138/90 H Pulse Oximetry 98 BMI result Body Mass Index 25.0 Const Other: Appearance: Alert. Oriented X3. No acute distress. Eyes: Pupils equal, round and reactive to light. ENT: Pharynx normal. Neck: Normal inspection. Neck supple. No lymph nodes noted. No crepitus CVS: Normal heart rate and rhythm. Pulses normal. Normal S1 and S2 Respiratory: No respiratory distress. Breath sounds normal. No Wheezing. No rales Abdomen: Soft and nontender. No rigidity. No distention. Skin: Skin warm and dry. Normal skin color. Normal skin turgor. Extremities: No lower extremity edema. No Lacerations. No Rash Neuro: Oriented X 3. No motor deficit. No sensory deficit. Moving all extremities. No slurred speech. CN 2 through 12 grossly intact Psych: calm, cooperative, normal affect Course Course Course Narrative: Patient's physical exam is relatively normal. Other than for occasional cough. I discussed labs and imaging with the patient, no acute findings. Patient tested negative for COVID and influenza. I discussed the physical exam with the patient, no wheezing. Patient is convinced that he has had wheezing over the last few days. Patient has no history of asthma or COPD. Medical Decision Making Lab Data Result diagrams: 02/02/22 23:34 02/02/22 23:34 Labs: Lab Results 02/02/22 02/02/22 02/02/22 Range/Units 23:34 23:34 23:34 WBC 6.5 (4.8-10.8) X10*3/uL RBC 3.54 L (4.60-5.80) X10*6/uL Hgb 11.2 L (14.0-18.0) g/dl Hct 35.2 L (42.0-52.0) % MCV 99.4 H (80.0-98.0) fL MCH 31.6 (27.0-33.0) pg MCHC 31.8 (31.0-36.0) g/dl RDW 14.6 (11.0-16.0) % Plt Count 197 (160-400) X10*3/uL MPV 9.0 L (9.4-12.4) fL Immature Gran % (Auto) 0.3 (0.0-0.4) % Neut % (Auto) 58.7 (45-73) % Lymph % (Auto) 25.1 (20-40) % [place]cho % (Auto) 12.1 H (2-11) % Eos % (Auto) 3.6 (0-4) % Baso % (Auto) 0.2 (0-2) % Lymph # (Auto) 1.6 (1.2-4.9) X10*3/uL [place] # (Auto) 0.8 (0.1-1.2) X10*3/uL Eos # (Auto) 0.2 (0.0-0.4) X10*3/uL Baso # (Auto) 0.0 (0.0-0.2) X10*3/uL Abs Immat Gran (auto) 0.02 (0.00-0.03) X10*3/uL Absolute Neuts (auto) 3.8 (2.0-8.3) x10*3/uL Absolute Nucleated RBC 0.000 (0.0-0.012) X10*3/uL Nucleated RBC % (auto) 0.0 (0.0-0.2) /100WBC Sodium (135-145) mmol/L Potassium (3.3-5.1) mmol/L Chloride (96-108) mmol/L Carbon Dioxide (22-29) mmol/L Anion Gap (12-20) BUN (9-16) mg/dL Creatinine (0.5-1.4) mg/dL Estim Creat Clear Calc Estimated GFR Random Glucose (60-115) mg/dL Calcium (8.4-10.2) mg/dL Total Bilirubin (0.0-1.0) mg/dL AST (5-37) U/L ALT (0-40) U/L Alkaline Phosphatase (39-117) U/L Total Protein (6.5-8.0) g/dL Albumin (3.5-5.0) g/dL COVID-19 (JASON) Negative (Negative) COVID-19 Clin Com See Note Influenza Type A (LESLI) Negative (Negative) Influenza Type B (LESLI) Negative (Negative) Influenza A & B Note See Note 02/02/22 Range/Units 23:34 WBC (4.8-10.8) X10*3/uL RBC (4.60-5.80) X10*6/uL Hgb (14.0-18.0) g/dl Hct (42.0-52.0) % MCV (80.0-98.0) fL MCH (27.0-33.0) pg MCHC (31.0-36.0) g/dl RDW (11.0-16.0) % Plt Count (160-400) X10*3/uL MPV (9.4-12.4) fL Immature Gran % (Auto) (0.0-0.4) % Neut % (Auto) (45-73) % Lymph % (Auto) (20-40) % [place]cho % (Auto) (2-11) % Eos % (Auto) (0-4) % Baso % (Auto) (0-2) % Lymph # (Auto) (1.2-4.9) X10*3/uL [place] # (Auto) (0.1-1.2) X10*3/uL Eos # (Auto) (0.0-0.4) X10*3/uL Baso # (Auto) (0.0-0.2) X10*3/uL Abs Immat Gran (auto) (0.00-0.03) X10*3/uL Absolute Neuts (auto) (2.0-8.3) x10*3/uL Absolute Nucleated RBC (0.0-0.012) X10*3/uL Nucleated RBC % (auto) (0.0-0.2) /100WBC Sodium 139 (135-145) mmol/L Potassium 4.2 (3.3-5.1) mmol/L Chloride 111 H (96-108) mmol/L Carbon Dioxide 21 L (22-29) mmol/L Anion Gap 11 L (12-20) BUN 18 H (9-16) mg/dL Creatinine 0.89 (0.5-1.4) mg/dL Estim Creat Clear Calc 55.6 Estimated GFR > 60 Random Glucose 146 H D (60-115) mg/dL Calcium 8.1 L (8.4-10.2) mg/dL Total Bilirubin 0.2 (0.0-1.0) mg/dL AST 23 (5-37) U/L ALT 20 (0-40) U/L Alkaline Phosphatase 83 (39-117) U/L Total Protein 8.2 H (6.5-8.0) g/dL Albumin 3.6 (3.5-5.0) g/dL COVID-19 (JASON) (Negative) COVID-19 Clin Com Influenza Type A (LESLI) (Negative) Influenza Type B (LESLI) (Negative) Influenza A & B Note Imaging Data Chest x-ray: Radiologist's impression: FINDINGS: Lungs are normally aerated. Cardiac mediastinal contours normal. Heart size normal. 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 No displaced fracture. XR/XR chest 1V IMPRESSION: No acute abnormality of the chest. Discharge Plan Discharge Clinical Impression: Cough in adult Patient Disposition: Home, Self-Care Instructions: Acute Cough (ED) Additional Instructions: Please follow-up with your primary care physician tomorrow. If you have any worsening or new symptoms, please return to the emergency room or call 911 Prescriptions: New benzonatate 100 mg capsule 100 mg PO TID PRN (Reason: cough) Qty: 12 0RF prednisone 50 mg tablet 50 mg PO DAILY Qty: 3 0RF No Action tamsulosin 0.4 mg capsule 0.4 mg PO BEDTIME 90 Days Qty: 90 3RF finasteride 5 mg tablet 5 mg PO DAILY 90 Days Qty: 90 0RF calcium carbonate [Calcium 500] 500 mg calcium (1,250 mg) tablet,chewable 500 mg PO BID 90 Days Qty: 180 1RF ropinirole 2 mg tablet 2 mg PO BEDTIME 0RF lisinopril 5 mg tablet 5 mg PO DAILY 0RF omeprazole 20 mg capsule,delayed release(DR/EC) 20 mg PO DAILY 0RF Xtandi 40 mg capsule 160 mg PO DAILY 0RF fluoride (sodium) 1.1 % cream PO BEDTIME 0RF erythromycin-benzoyl peroxide 3-5 % gel topical 0RF amlodipine 5 mg tablet 5 mg PO DAILY 0RF lisinopril 10 mg tablet 10 mg PO DAILY 0RF cholecalciferol (vitamin D3) 10 mcg (400 unit) tablet 800 unit PO DAILY 90 Days Qty: 180 1RF
[2022-02-03] MEDS: predniSONE 20 MG TABLET 40 MG PO (01:04)
[2022-02-03] MEDS: Benzonatate 100 MG CAPSULE PO (01:04)
== END 2022-02-03 01:06 | disposition home or self-care (01) ==
PROVIDERS: Emergency Provider Emergency Medicine; PCP Internal Medicine
DX: R05.9 Cough, unspecified (principal); R06.02 Shortness of breath; R06.2 Wheezing; Z20.822 Contact with and (suspected) exposure to COVID-19; Z79.899 Other long term (current) drug therapy
CPT/HCPCS: 36415; 71045; 80053; 85025; 87502; 87635; 99283

== ENCOUNTER → 2022-02-12 10:50 | Outpatient (REF) | payer MEDICARE, OTHER, SELFPAY ==
--- NOTE | ~2022-02-12 | NM_ITS ---
EXAMINATION: NM BONE SCAN OF THE WHOLE BODY CLINICAL INFORMATION: Malignant neoplasm of prostate. COMPARISON: The previous bone scan dated 07/15/2021 is available for comparison. A radiograph the chest dated 02/02/2022 is available for comparison. The diagnostic CT scan of the abdomen and pelvis, dated 07/08/2021, is available for comparison. TECHNIQUE: Multiple gamma scintillation camera images of the whole body were performed 3 hours following the intravenous administration of 25 mCi Tc-99m MDP. FINDINGS: In the head, no significant abnormalities are present. In the thoracic cage and upper extremities, there is mildly increased activity in the acromioclavicular and sternoclavicular joints bilaterally. Some residual radiopharmaceutical at the injection site in the left antecubital fossa is noted. In the spine, a minimal thoracolumbar scoliosis is present with lumbar convexity to the right. In the pelvis, no significant abnormalities are present. In the lower extremities, no significant abnormalities are present. No other definite bony abnormalities are noted. The urinary bladder and faint visualization of both kidneys are noted. Compared to the previous study dated 07/15/2021, there has not been a significant change. NM/NM bone scan whole body IMPRESSION: A few very mild nonspecific abnormalities are noted as described above and these are all likely arthritic or traumatic in etiology. None of these abnormalities is strongly suspicious for metastatic disease.
== END ==
LOC: HO.NUCMED 10:50
PROVIDERS: PCP Internal Medicine; Visit Provider Urology
DX: C61 Malignant neoplasm of prostate (principal); C79.51 Secondary malignant neoplasm of bone
CPT/HCPCS: 78306; A9503

== ENCOUNTER 2022-02-15 07:21 | Outpatient (REF) | payer MEDICARE, OTHER, SELFPAY ==
[2022-02-15 11:17] LABS: Prostate Specific Antigen 0.14 ng/mL (<0.05-4.0)
[2022-02-18 23:47] LABS: Testosterone, Total 6 ng/dL (250-1100)
== END 2022-02-15 07:22 | disposition home or self-care (01) ==
LOC: HO.10HDL 07:21
PROVIDERS: Visit Provider Urology
DX: Z12.5 Encounter for screening for malignant neoplasm of prostate (principal); C61 Malignant neoplasm of prostate; C79.51 Secondary malignant neoplasm of bone
CPT/HCPCS: 36415; 84153; 84403

== ENCOUNTER 2022-02-17 07:35 | Outpatient (REF) | payer MEDICARE, OTHER, SELFPAY ==
[2022-02-17 10:45] LABS: MANUAL DIFF FLAG NO
[2022-02-17 11:02] LABS: Basophils Percent Auto 0.4 % (0-2); Eosinophils Absolute Auto 0.2 X10*3/uL (0.0-0.4); Eosinophils Percent Auto 3.1 % (0-4); Hematocrit 36.2 % (42.0-52.0); Hemoglobin 11.4 g/dl (14.0-18.0); Imm Gran Abs Auto 0.04 X10*3/uL (0.00-0.03); Imm Gran Pct Auto 0.5 % (0.0-0.4); Lymphocytes Absolute Auto 1.3 X10*3/uL (1.2-4.9); Lymphocytes Percent Auto 16.2 % (20-40); Mean Corpuscular HGB Conc 31.5 g/dl (31.0-36.0); Mean Corpuscular Hemoglobin 31.4 pg (27.0-33.0); Mean Corpuscular Volume 99.7 fL (80.0-98.0); Mean Platelet Volume 9.3 fL (9.4-12.4); Monocytes Absolute Auto 0.9 X10*3/uL (0.1-1.2); Monocytes Percent Auto 11.1 % (2-11); Neutrophils Absolute Auto 5.4 x10*3/uL (2.0-8.3); Neutrophils Percent Auto 68.7 % (45-73); Platelet Count 276 X10*3/uL (160-400); Red Blood Count 3.63 X10*6/uL (4.60-5.80); White Blood Count 7.8 X10*3/uL (4.8-10.8)
[2022-02-17 11:20] LABS: Alanine Aminotransferase 17 U/L (0-40); Albumin Level 3.8 g/dL (3.5-5.0); Alkaline Phosphatase 85 U/L (39-117); Anion Gap 11 (12-20); Aspartate Amino Transferase 17 U/L (5-37); Bilirubin Total 0.5 mg/dL (0.0-1.0); Blood Urea Nitrogen 15 mg/dL (9-16); Calcium 8.6 mg/dL (8.4-10.2); Carbon Dioxide 24 mmol/L (22-29); Chloride 109 mmol/L (96-108); Estimated Glomerular Filt Rate > 60; Glucose Random 113 mg/dL (60-115); Potassium 4.6 mmol/L (3.3-5.1); Sodium 139 mmol/L (135-145); Total Protein 7.9 g/dL (6.5-8.0)
[2022-02-17 11:34] LABS: Prostate Specific Antigen 0.17 ng/mL (<0.05-4.0)
== END 2022-02-17 07:36 | disposition home or self-care (01) ==
LOC: HO.10HDL 07:35
PROVIDERS: Visit Provider Internal Medicine Hematology & Oncology
DX: Z12.5 Encounter for screening for malignant neoplasm of prostate (principal); C61 Malignant neoplasm of prostate
CPT/HCPCS: 36415; 80053; 84153; 85025

== ENCOUNTER → 2022-03-12 09:21 | Outpatient (BNVA) | payer MEDICARE, OTHER, SELFPAY | PROVIDERS: PCP Internal Medicine; Visit Provider Urology | DX: C61 Malignant neoplasm of prostate (principal); C79.51 Secondary malignant neoplasm of bone; N40.0 Benign prostatic hyperplasia without lower urinary tract symptoms; Z79.899 Other long term (current) drug therapy | CPT/HCPCS: 99212 ==

== ENCOUNTER → 2022-03-30 08:56 | Outpatient (BNVA) | payer MEDICARE, OTHER, SELFPAY | PROVIDERS: PCP Internal Medicine; Visit Provider Urology | DX: C61 Malignant neoplasm of prostate (principal) | CPT/HCPCS: 96402; J9217 ==

== ENCOUNTER 2022-06-07 07:23 | Outpatient (REF) | payer MEDICARE, OTHER, SELFPAY ==
[2022-06-07 08:33] LABS: MANUAL DIFF FLAG NO
[2022-06-07 08:37] LABS: Basophils Absolute Auto 0.1 X10*3/uL (0.0-0.2); Basophils Percent Auto 0.9 % (0-2); Eosinophils Absolute Auto 0.4 X10*3/uL (0.0-0.4); Eosinophils Percent Auto 5.3 % (0-4); Hematocrit 36.5 % (42.0-52.0); Hemoglobin 11.9 g/dl (14.0-18.0); Imm Gran Abs Auto 0.04 X10*3/uL (0.00-0.03); Imm Gran Pct Auto 0.6 % (0.0-0.4); Lymphocytes Absolute Auto 1.2 X10*3/uL (1.2-4.9); Lymphocytes Percent Auto 17.8 % (20-40); Mean Corpuscular HGB Conc 32.6 g/dl (31.0-36.0); Mean Corpuscular Hemoglobin 32.2 pg (27.0-33.0); Mean Corpuscular Volume 98.6 fL (80.0-98.0); Mean Platelet Volume 9.2 fL (9.4-12.4); Monocytes Absolute Auto 0.8 X10*3/uL (0.1-1.2); Monocytes Percent Auto 12.7 % (2-11); Neutrophils Absolute Auto 4.1 x10*3/uL (2.0-8.3); Neutrophils Percent Auto 62.7 % (45-73); Platelet Count 195 X10*3/uL (160-400); Red Cell Distribution Width 13.2 % (11.0-16.0); White Blood Count 6.6 X10*3/uL (4.8-10.8)
[2022-06-07 09:16] LABS: Alanine Aminotransferase 25 U/L (0-40); Albumin Level 4.1 g/dL (3.5-5.0); Alkaline Phosphatase 96 U/L (39-117); Anion Gap 15 (12-20); Aspartate Amino Transferase 21 U/L (5-37); Bilirubin Total 0.3 mg/dL (0.0-1.0); Blood Urea Nitrogen 20 mg/dL (9-16); Calcium 9.3 mg/dL (8.4-10.2); Carbon Dioxide 27 mmol/L (22-29); Chloride 106 mmol/L (96-108); Estimated Glomerular Filt Rate > 60; Glucose Random 116 mg/dL (60-115); Potassium 5.5 mmol/L (3.3-5.1); Sodium 142 mmol/L (135-145); Total Protein 7.6 g/dL (6.5-8.0)
[2022-06-07 09:34] LABS: Prostate Specific Antigen 0.11 ng/mL (<0.05-4.0)
[2022-06-11 13:31] LABS: Testosterone, Total 7 ng/dL (250-1100)
== END 2022-06-07 07:24 | disposition home or self-care (01) ==
LOC: HO.10HDL 07:23
PROVIDERS: Internal Medicine Hematology & Oncology; Visit Provider Urology
DX: Z12.5 Encounter for screening for malignant neoplasm of prostate (principal); C61 Malignant neoplasm of prostate; C79.51 Secondary malignant neoplasm of bone
CPT/HCPCS: 36415; 80053; 84153; 84403; 85025

== ENCOUNTER → 2022-06-17 09:18 | Outpatient (BNVA) | payer MEDICARE, OTHER, SELFPAY | PROVIDERS: PCP Internal Medicine; Visit Provider Urology | DX: C61 Malignant neoplasm of prostate (principal); C79.51 Secondary malignant neoplasm of bone; M81.8 Other osteoporosis without current pathological fracture; T38.7X5A Adverse effect of androgens and anabolic congeners, initial encounter | CPT/HCPCS: Q3014 ==

== ENCOUNTER 2022-08-12 09:54 | Outpatient (REF) | payer MEDICARE, MEDICAID, SELFPAY ==
[2022-08-12 10:40] LABS: MANUAL DIFF FLAG NO
[2022-08-12 10:51] LABS: Basophils Absolute Auto 0.1 X10*3/uL (0.0-0.2); Basophils Percent Auto 0.8 % (0-2); Eosinophils Absolute Auto 0.4 X10*3/uL (0.0-0.4); Eosinophils Percent Auto 5.2 % (0-4); Hemoglobin 11.8 g/dl (14.0-18.0); Imm Gran Abs Auto 0.06 X10*3/uL (0.00-0.03); Imm Gran Pct Auto 0.8 % (0.0-0.4); Lymphocytes Absolute Auto 1.3 X10*3/uL (1.2-4.9); Lymphocytes Percent Auto 17.7 % (20-40); Mean Corpuscular HGB Conc 31.9 g/dl (31.0-36.0); Mean Corpuscular Volume 100.3 fL (80.0-98.0); Mean Platelet Volume 9.2 fL (9.4-12.4); Monocytes Percent Auto 13.3 % (2-11); Neutrophils Absolute Auto 4.6 x10*3/uL (2.0-8.3); Neutrophils Percent Auto 62.2 % (45-73); Platelet Count 236 X10*3/uL (160-400); Red Blood Count 3.69 X10*6/uL (4.60-5.80); Red Cell Distribution Width 13.5 % (11.0-16.0); White Blood Count 7.4 X10*3/uL (4.8-10.8)
[2022-08-12 11:25] LABS: Alanine Aminotransferase 25 U/L (0-40); Albumin Level 4.1 g/dL (3.5-5.0); Alkaline Phosphatase 118 U/L (39-117); Anion Gap 12 (12-20); Aspartate Amino Transferase 21 U/L (5-37); Bilirubin Total 0.3 mg/dL (0.0-1.0); Blood Urea Nitrogen 22 mg/dL (9-16); Calcium 9.1 mg/dL (8.4-10.2); Carbon Dioxide 26 mmol/L (22-29); Chloride 107 mmol/L (96-108); Cholesterol 144 mg/dL; Estimated Glomerular Filt Rate > 60; Glucose Random 100 mg/dL (60-115); Potassium 4.4 mmol/L (3.3-5.1); Sodium 141 mmol/L (135-145); Total Protein 7.5 g/dL (6.5-8.0)
== END 2022-08-12 09:55 | disposition home or self-care (01) ==
LOC: HO.10HDL 09:54
PROVIDERS: Visit Provider Internal Medicine
DX: I10 Essential (primary) hypertension (principal); D64.9 Anemia, unspecified; C61 Malignant neoplasm of prostate
CPT/HCPCS: 36415; 80053; 82465; 85025

== ENCOUNTER 2022-09-01 07:33 | Outpatient (REF) | payer MEDICARE, MEDICAID, SELFPAY ==
[2022-09-06 12:17] LABS: Testosterone, Total 11 ng/dL (250-1100)
== END 2022-09-01 07:34 | disposition home or self-care (01) ==
LOC: HO.10HDL 07:33
PROVIDERS: Visit Provider Urology
DX: C61 Malignant neoplasm of prostate (principal); C79.51 Secondary malignant neoplasm of bone
CPT/HCPCS: 36415; 84153; 84403

== ENCOUNTER 2022-09-24 07:05 | Outpatient (REF) | payer MEDICARE, MEDICAID, SELFPAY ==
[2022-09-30 10:13] LABS: Testosterone, Total 6 ng/dL (250-1100)
== END 2022-09-24 07:06 | disposition home or self-care (01) ==
LOC: HO.LAB 07:05
PROVIDERS: PCP Internal Medicine; Visit Provider Urology
DX: Z13.89 Encounter for screening for other disorder (principal)
CPT/HCPCS: 36415; 84403

== ENCOUNTER → 2022-10-04 10:48 | Outpatient (REF) | payer MEDICARE, OTHER, SELFPAY ==
--- NOTE | ~2022-10-04 | NM_ITS ---
EXAMINATION: NM BONE SCAN OF THE WHOLE BODY CLINICAL INFORMATION: Malignant neoplasm of prostate. COMPARISON: The previous bone scan dated 02/12/2022 is available for comparison. No recent radiographs are available for comparison. TECHNIQUE: Multiple gamma scintillation camera images of the whole body were performed 2.5 hours following the intravenous administration of 28 mCi Tc-99m MDP. FINDINGS: In the head, there is minimally increased activity in the temporomandibular joint regions bilaterally. There is a focus of minimally increased activity present in the high parasagittal region there is visualized only on the anterior whole body image and is not visualized on the lateral spot views of the head. In the thoracic cage and upper extremities, there is a focus of moderately intense abnormally increased activity present in the posterolateral aspect of the left seventh rib. There is minimally increased activity in the acromioclavicular joints bilaterally and faintly in the left sternoclavicular joint. There is a very mild diffuse increase in activity in the sternal manubrium. In the spine, there is an intense discrete focus of increased activity present in the posterior elements and likely in the spinous process of T5. A minimal thoracolumbar scoliosis is present with lumbar convexity to the right. There is very faintly increased activity in the right posterior elements at L5/S1. In the pelvis, a focus of mildly increased activity is present in the region of the inferior aspect of the right sacroiliac joint and probably in the right sacral ala. There is also faint focus of increased activity posteriorly in the inferior lip of the left acetabulum. In the lower extremities, minimally increased activity in the first metatarsophalangeal joints bilaterally and in mild foci in the proximal feet bilaterally are present. No other definite bony abnormalities are noted. The urinary bladder and faint visualization of both kidneys are noted. Compared to the previous study dated 02/12/2022, the abnormalities in the left seventh rib and T5 vertebra described above were not present on the 02/12/2022 study. The current equivocal abnormality visualized on the whole body images in the high parasagittal skull was not present on the prior study. The remainder the scan is unchanged. NM/NM bone scan whole body IMPRESSION: 1. Prominent new abnormalities in the left seventh rib and spinous process of T5 are noted and are strongly suspicious for metastatic disease. Less likely, both of these abnormalities could be traumatic in etiology. Clinically indicated, the abnormality in the spinous process of a mid thoracic vertebra, likely T5 could be further characterized with MRI, performed without and with intravenous contrast. Plain radiographs may be helpful in further characterizing the left seventh rib abnormality. 2. A few additional minimal nonspecific abnormalities are noted as described above and these are all likely arthritic or traumatic in etiology. None of these abnormalities is strongly suspicious for metastatic disease.
== END ==
LOC: HO.NUCMED 10:48
PROVIDERS: PCP Internal Medicine; Visit Provider Urology
DX: C61 Malignant neoplasm of prostate (principal); C79.51 Secondary malignant neoplasm of bone
CPT/HCPCS: 78306; A9503

== ENCOUNTER → 2022-10-19 13:14 | Outpatient (BNVA) | payer MEDICARE, MEDICAID, SELFPAY | PROVIDERS: PCP Internal Medicine; Visit Provider Urology | DX: C61 Malignant neoplasm of prostate (principal); C79.51 Secondary malignant neoplasm of bone; M81.8 Other osteoporosis without current pathological fracture; T38.7X5A Adverse effect of androgens and anabolic congeners, initial encounter | CPT/HCPCS: 99212 ==

== ENCOUNTER → 2022-11-02 10:31 | Outpatient (BNVA) | payer MEDICARE, MEDICAID, SELFPAY | PROVIDERS: PCP Internal Medicine; Visit Provider Urology | DX: C61 Malignant neoplasm of prostate (principal); C79.51 Secondary malignant neoplasm of bone; Z79.899 Other long term (current) drug therapy | CPT/HCPCS: 96372; 96402; J0897; J9217 ==

== ENCOUNTER 2022-11-30 10:46 | Outpatient (REF) | payer MEDICARE, MEDICAID, SELFPAY ==
[2022-11-30 14:33] LABS: MANUAL DIFF FLAG NO
[2022-11-30 14:40] LABS: Basophils Absolute Auto 0.1 X10*3/uL (0.0-0.2); Basophils Percent Auto 0.8 % (0-2); Eosinophils Absolute Auto 0.2 X10*3/uL (0.0-0.4); Hemoglobin 11.9 g/dl (14.0-18.0); Imm Gran Abs Auto 0.05 X10*3/uL (0.00-0.03); Imm Gran Pct Auto 0.8 % (0.0-0.4); Lymphocytes Absolute Auto 1.1 X10*3/uL (1.2-4.9); Mean Corpuscular HGB Conc 31.3 g/dl (31.0-36.0); Mean Corpuscular Hemoglobin 31.1 pg (27.0-33.0); Mean Corpuscular Volume 99.2 fL (80.0-98.0); Mean Platelet Volume 9.4 fL (9.4-12.4); Monocytes Absolute Auto 0.8 X10*3/uL (0.1-1.2); Monocytes Percent Auto 11.9 % (2-11); Neutrophils Absolute Auto 4.3 x10*3/uL (2.0-8.3); Neutrophils Percent Auto 66.5 % (45-73); Platelet Count 242 X10*3/uL (160-400); Red Blood Count 3.83 X10*6/uL (4.60-5.80); Red Cell Distribution Width 13.5 % (11.0-16.0); White Blood Count 6.4 X10*3/uL (4.8-10.8)
[2022-11-30 15:08] LABS: Alanine Aminotransferase 23 U/L (0-40); Alkaline Phosphatase 91 U/L (39-117); Anion Gap 11 (12-20); Aspartate Amino Transferase 23 U/L (5-37); Bilirubin Total 0.6 mg/dL (0.0-1.0); Blood Urea Nitrogen 15 mg/dL (9-16); Calcium 8.8 mg/dL (8.4-10.2); Carbon Dioxide 25 mmol/L (22-29); Chloride 109 mmol/L (96-108); Estimated Glomerular Filt Rate > 60; Glucose Random 109 mg/dL (60-115); Potassium 4.7 mmol/L (3.3-5.1); Sodium 140 mmol/L (135-145)
[2022-11-30 15:15] LABS: Prostate Specific Antigen 0.27 ng/mL (<0.05-4.0)
== END 2022-11-30 10:47 | disposition home or self-care (01) ==
LOC: HO.10HDL 10:46
PROVIDERS: Visit Provider Internal Medicine Hematology & Oncology
DX: Z12.5 Encounter for screening for malignant neoplasm of prostate (principal); C61 Malignant neoplasm of prostate; C79.51 Secondary malignant neoplasm of bone
CPT/HCPCS: 36415; 80053; 84153; 85025

== ENCOUNTER 2022-12-16 10:12 | Outpatient (REF) | payer MEDICARE, MEDICAID, SELFPAY ==
[2022-12-16 14:33] LABS: Vitamin B12 321 pg/mL (200-900)
[2022-12-16 14:44] LABS: Alanine Aminotransferase 32 U/L (0-40); Albumin Level 4.1 g/dL (3.5-5.0); Alkaline Phosphatase 93 U/L (39-117); Anion Gap 13 (12-20); Aspartate Amino Transferase 27 U/L (5-37); Bilirubin Total 0.6 mg/dL (0.0-1.0); Blood Urea Nitrogen 19 mg/dL (9-16); C Reactive Protein < 0.04 mg/dL (< or = 0.50); Calcium 9.2 mg/dL (8.4-10.2); Carbon Dioxide 27 mmol/L (22-29); Chloride 106 mmol/L (96-108); Estimated Glomerular Filt Rate > 60; Glucose Random 102 mg/dL (60-115); Magnesium 2.1 mg/dL (1.6-2.6); Potassium 4.7 mmol/L (3.3-5.1); Sodium 141 mmol/L (135-145); Total Protein 7.3 g/dL (6.5-8.0)
== END 2022-12-16 10:13 | disposition home or self-care (01) ==
LOC: HO.10HDL 10:12
PROVIDERS: Visit Provider Internal Medicine
DX: I10 Essential (primary) hypertension (principal); G25.81 Restless legs syndrome
CPT/HCPCS: 36415; 80053; 82607; 83735; 86140

== ENCOUNTER 2023-01-14 07:37 | Outpatient (REF) | payer MEDICARE, MEDICAID, SELFPAY ==
[2023-01-14 11:29] LABS: Blood Urea Nitrogen 19 mg/dL (9-16); Estimated Glomerular Filt Rate 56
[2023-01-14 11:45] LABS: Prostate Specific Antigen 0.24 ng/mL (<0.05-4.0)
[2023-01-20 13:38] LABS: Testosterone, Total 7 ng/dL (250-1100)
== END 2023-01-14 07:38 | disposition home or self-care (01) ==
LOC: HO.10HDL 07:37
PROVIDERS: Visit Provider Urology
DX: Z12.5 Encounter for screening for malignant neoplasm of prostate (principal); C61 Malignant neoplasm of prostate; C79.51 Secondary malignant neoplasm of bone
CPT/HCPCS: 36415; 82565; 84153; 84403; 84520

== ENCOUNTER → 2023-01-21 10:06 | Outpatient (BNVA) | payer MEDICARE, MEDICAID, SELFPAY | PROVIDERS: PCP Internal Medicine; Visit Provider Urology | DX: M81.8 Other osteoporosis without current pathological fracture (principal); T38.7X5A Adverse effect of androgens and anabolic congeners, initial encounter; C61 Malignant neoplasm of prostate; C79.51 Secondary malignant neoplasm of bone | CPT/HCPCS: 99212 ==

== ENCOUNTER 2023-02-08 07:31 | Outpatient (REF) | payer MEDICARE, MEDICAID, SELFPAY ==
[2023-02-08 11:04] LABS: Prostate Specific Antigen 0.25 ng/mL (<0.05-4.0)
[2023-02-13 11:24] LABS: Testosterone, Total 5 ng/dL (250-1100)
== END 2023-02-08 07:32 | disposition home or self-care (01) ==
LOC: HO.10HDL 07:31
PROVIDERS: Internal Medicine Hematology & Oncology; Visit Provider Urology
DX: Z12.5 Encounter for screening for malignant neoplasm of prostate (principal); C61 Malignant neoplasm of prostate; C79.51 Secondary malignant neoplasm of bone
CPT/HCPCS: 36415; 84153; 84403

== ENCOUNTER → 2023-04-28 09:54 | Outpatient (REF) | payer MEDICARE, MEDICAID, SELFPAY ==
--- NOTE | ~2023-04-28 | NM_ITS ---
EXAMINATION: NM BONE SCAN OF THE WHOLE BODY CLINICAL INFORMATION: Malignant neoplasm of prostate. COMPARISON: Available baseline bone scan done on 04/13/2020 and most recent prior whole-body bone scan done on 10/04/2022. TECHNIQUE: Multiple gamma scintillation camera images of the whole body were performed 2.5 hours following the intravenous administration of 28 mCi Tc-99m MDP. The radiotracer was injected through right antecubital superficial vein without complications. FINDINGS: In the head, previously suspected subtle focal high parasagittal calvarial activity to the right of the midline appear much more pronounced, suspicious for progressive metastatic disease. In the thoracic cage and upper extremities, progressive osseous disease involving posterolateral aspect of the left seventh rib and new foci of increased radiotracer activities along the posteromedial and posterior aspect of the left ninth rib, consistent with progressive osseous metastatic disease. Asymmetric focal increased radiotracer activity is present along the lateral end of the right clavicle near the acromioclavicular joint, may represent posttraumatic and/or metastatic disease, shows interval progression since 10/14/2022. In the spine, interval increase in disease activity at posterior part of T5 and interval new focal increased radiotracer activity at T11, T10 and T7 to the right of the midline, also consistent with progressive osseous metastatic disease. Likely degenerative spondylosis at the mid cervical spine (right greater than left), appears slightly more pronounced since the prior study. In the pelvis, interval increase in radiotracer activities involving the posterior inferior part of the left acetabulum and posterior superior aspect of the right sacral ala at the level of the SI joint. The findings are consistent with progressive osseous metastatic disease. In the lower extremities, new focal increased radiotracer activity is also present involving the right femoral neck. Given the weightbearing location of the right femoral neck, follow-up radiographic evaluation is recommended. No other definite bony abnormalities are noted. The urinary bladder and faint visualization of both kidneys are noted. NM/NM bone scan whole body IMPRESSION: 1. 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 2. Given the involvement of the right femoral neck (weightbearing area), a follow-up radiographic evaluation is recommended to exclude any possibility of underlying evolving pathological fracture.
== END ==
LOC: HO.NUCMED 09:54
PROVIDERS: PCP Internal Medicine; Visit Provider Urology
DX: C61 Malignant neoplasm of prostate (principal); C79.51 Secondary malignant neoplasm of bone
CPT/HCPCS: 78306; A9503

== ENCOUNTER 2023-05-02 07:10 | Outpatient (REF) | payer MEDICARE, MEDICAID, SELFPAY ==
[2023-05-02 10:33] LABS: MANUAL DIFF FLAG NO
[2023-05-02 10:36] LABS: Basophils Absolute Auto 0.1 X10*3/uL (0.0-0.2); Basophils Percent Auto 0.9 % (0-2); Eosinophils Absolute Auto 0.3 X10*3/uL (0.0-0.4); Eosinophils Percent Auto 4.5 % (0-4); Hematocrit 36.1 % (42.0-52.0); Hemoglobin 11.2 g/dl (14.0-18.0); Imm Gran Abs Auto 0.05 X10*3/uL (0.00-0.03); Imm Gran Pct Auto 0.8 % (0.0-0.4); Lymphocytes Absolute Auto 1.2 X10*3/uL (1.2-4.9); Lymphocytes Percent Auto 18.5 % (20-40); Mean Corpuscular Hemoglobin 32.3 pg (27.0-33.0); Mean Platelet Volume 9.7 fL (9.4-12.4); Monocytes Absolute Auto 0.9 X10*3/uL (0.1-1.2); Monocytes Percent Auto 13.7 % (2-11); Neutrophils Absolute Auto 4.1 x10*3/uL (2.0-8.3); Neutrophils Percent Auto 61.6 % (45-73); Platelet Count 234 X10*3/uL (160-400); Red Blood Count 3.47 X10*6/uL (4.60-5.80); Red Cell Distribution Width 13.7 % (11.0-16.0); White Blood Count 6.7 X10*3/uL (4.8-10.8)
[2023-05-02 11:07] LABS: Alanine Aminotransferase 40 U/L (0-40); Albumin Level 3.9 g/dL (3.5-5.0); Alkaline Phosphatase 115 U/L (39-117); Anion Gap 15 (12-20); Aspartate Amino Transferase 31 U/L (5-37); Bilirubin Total 0.3 mg/dL (0.0-1.0); Blood Urea Nitrogen 15 mg/dL (9-16); Calcium 9.3 mg/dL (8.4-10.2); Carbon Dioxide 23 mmol/L (22-29); Chloride 109 mmol/L (96-108); Estimated Glomerular Filt Rate > 60; Glucose Random 120 mg/dL (60-115); Potassium 5.2 mmol/L (3.3-5.1); Sodium 142 mmol/L (135-145); Total Protein 7.7 g/dL (6.5-8.0)
[2023-05-02 11:20] LABS: Prostate Specific Antigen 0.38 ng/mL (<0.05-4.0)
== END 2023-05-02 07:11 | disposition home or self-care (01) ==
LOC: HO.10HDL 07:10
PROVIDERS: Absent Provider Urology; Visit Provider Internal Medicine Hematology & Oncology
DX: Z12.5 Encounter for screening for malignant neoplasm of prostate (principal); C61 Malignant neoplasm of prostate; C79.51 Secondary malignant neoplasm of bone
CPT/HCPCS: 36415; 80053; 84153; 85025

== ENCOUNTER 2023-05-10 13:02 | Emergency (ER) | payer MEDICARE, MEDICAID, SELFPAY ==
--- NOTE | ~2023-05-10 | XR_ITS ---
EXAMINATION: XR CHEST CLINICAL INFORMATION: Sore throat, shortness of breath COMPARISON: 02/02/2022 TECHNIQUE: Frontal view of the chest was obtained. FINDINGS: Heart and mediastinum within normal limits. No vascular congestion. No consolidations or effusions. Bibasilar atelectasis. 2.6 cm left mid peripheral nodular density. Bony structures are intact. XR/XR chest 1V IMPRESSION: Findings concerning for 2.6 cm left mid lung peripheral lung lesion. CT recommended.
--- NOTE | ~2023-05-10 | CT_ITS ---
EXAMINATION: CT CHEST WITH CONTRAST CLINICAL INFORMATION: 2.6 cm lung mass seen on chest radiograph COMPARISON: Chest radiograph earlier today and chest radiograph 02/02/2022 Nuclear medicine bone scan 04/28/2023 TECHNIQUE: Multidetector volumetric CT imaging of the chest was obtained after the administration of 65 mL of Omnipaque 350 intravenous contrast without immediate adverse reactions. Axial MIP volume rendering provided. Sagittal and coronal reformatted images were obtained. This CT examination was performed using dose optimization techniques as appropriate, variously including the following: *Automated exposure control *Adjustment of mA and/or kV according to patient size (this includes techniques or standardized protocols for targeted exams where dose is matched to indication/reason for exam; i.e. extremities or head) *Use of iterative reconstruction technique DLP: 273 mGy-cm FINDINGS: LUNGS: The abnormality in question seen on the chest radiograph represents a moth-eaten 5th posterolateral left rib lesion with associated soft tissue density around it. This is only one area of innumerable metastatic lesions (see below) MEDIASTINUM: Heart size normal. The thoracic aorta demonstrates calcific plaque without aneurysm. Extensive coronary calcium is seen PLEURA: There is no pleural effusion. No pleural mass or thickening. AXILLA: No lymphadenopathy. UPPER ABDOMEN: There is hepatic steatosis with focal fatty sparing around the gallbladder. There is cholelithiasis. A benign left-sided 1 cm Bosniak class I renal cyst is noted which requires no additional imaging or follow up. OSSEOUS STRUCTURES: Extensive metastatic disease is present involving nearly all visualized bones most marked in the spine well characterized on the recent nuclear medicine bone scan on 04/28/2023. CT/CT chest w IV con IMPRESSION: 1. The abnormality in question represents a moth-eaten 5th posterolateral left rib lesion with associated soft tissue density around it. 2. Extensive metastatic disease involving nearly all visualized bones. 3. Incidental note made of hepatic steatosis, cholelithiasis and extensive coronary calcium. Fleischner guidelines were followed.
[2023-05-10 13:42] VITALS: BP 195/86; PULSE 86; RESP 18; TEMP 36.8; O2SAT 94; BMI 30.3
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
[2023-05-10 16:41] LABS: MANUAL DIFF FLAG NO
[2023-05-10 16:43] LABS: Basophils Percent Auto 0.4 % (0-2); Eosinophils Absolute Auto 0.2 X10*3/uL (0.0-0.4); Eosinophils Percent Auto 1.7 % (0-4); Hemoglobin 10.9 g/dl (14.0-18.0); Imm Gran Abs Auto 0.07 X10*3/uL (0.00-0.03); Imm Gran Pct Auto 0.8 % (0.0-0.4); Lymphocytes Absolute Auto 1.4 X10*3/uL (1.2-4.9); Mean Platelet Volume 9.3 fL (9.4-12.4); Monocytes Absolute Auto 1.1 X10*3/uL (0.1-1.2); Monocytes Percent Auto 12.2 % (2-11); Neutrophils Absolute Auto 6.5 x10*3/uL (2.0-8.3); Neutrophils Percent Auto 69.9 % (45-73); Platelet Count 233 X10*3/uL (160-400); Red Cell Distribution Width 13.7 % (11.0-16.0); White Blood Count 9.3 X10*3/uL (4.8-10.8)
[2023-05-10 16:53] LABS: IDNOW Serial# 08D9AD1C; Strep A Nucleic Acid Negative (Negative)
[2023-05-10 16:58] LABS: Alanine Aminotransferase 30 U/L (0-40); Albumin Level 4.2 g/dL (3.5-5.0); Alkaline Phosphatase 125 U/L (39-117); Anion Gap 12 (12-20); Aspartate Amino Transferase 26 U/L (5-37); Bilirubin Total 0.8 mg/dL (0.0-1.0); Blood Urea Nitrogen 17 mg/dL (9-16); COVID-19 Test Negative (Negative); Calcium 9.5 mg/dL (8.4-10.2); Carbon Dioxide 26 mmol/L (22-29); Chloride 107 mmol/L (96-108); Creatinine Clr Calc Pharmacy 48.5; Estimated Glomerular Filt Rate > 60; Glucose Random 101 mg/dL (60-115); IDNOW Serial# BCCEAD1C; Potassium 4.2 mmol/L (3.3-5.1); Sodium 141 mmol/L (135-145); Total Protein 8.3 g/dL (6.5-8.0)
[2023-05-10 17:09] LABS: IDNOW Serial# 9DB6401D; Influenza A Negative (Negative); Influenza B2 Negative (Negative)
[2023-05-10 19:15] VITALS: PULSE 102; RESP 22; O2SAT 93
[2023-05-10] MEDS: dexAMETHasone sod phosphate 10 MG/ML VIAL IVPUSH (19:34)
--- NOTE | 2023-05-10 22:17 | PC.NURSE ---
20G IV placed in left upper AC- pt awaiting CT with contrast
[2023-05-10] MEDS: iohexoL 350 MG/ML 100 ML INFUS..BTL IV (22:50)
[2023-05-10 23:01] VITALS: BP 182/90; PULSE 85; RESP 18; O2SAT 95
== END 2023-05-10 23:52 | disposition home or self-care (01) ==
PROVIDERS: Physician Assistant; Emergency Provider Student in an Organized Health Care Education/Training Program; PCP Internal Medicine
DX: C61 Malignant neoplasm of prostate (principal); C79.51 Secondary malignant neoplasm of bone; R06.02 Shortness of breath; Z20.822 Contact with and (suspected) exposure to COVID-19
CPT/HCPCS: 36415; 71045; 71260; 80053; 83735; 85025; 87502; 87635; 87651; 99284; J1100; Q9967

== ENCOUNTER 2023-05-17 09:13 | Outpatient (AMB) | payer MEDICARE, MEDICAID, SELFPAY ==
--- NOTE | 2023-05-17 09:18 | MHC.OFFVIS ---
Intake Intake Visit Reasons: GnRH/prolia/bone scan(set)(Approved) Intake Note: Patient is present for Follow Up Eligard/Bone Scan Urology Med:Tamsulosin Antibiotic Allergy: None Blood Thinner: None Pharmacy: [facility] Allergies No Known Allergies [No Known Allergies*] Allergy (Verified 05/17/23 09:31) Medication List - Last Reconciled 05/17/23 by Lukas Fihs MD albuterol sulfate 90 mcg/actuation 1 inh inhalation QID PRN amlodipine 5 mg PO DAILY benzonatate 100 mg PO TID PRN calcium carbonate 200 mg PO BID calcium carbonate (Calcium 500) 500 mg PO BID 90 days cholecalciferol (vitamin D3) 800 units PO DAILY 90 days enzalutamide 160 mg PO DAILY erythromycin-benzoyl peroxide 3-5 % topical fluoride (sodium) 1.1% appl PO BEDTIME leuprolide acetate (6 month) (Eligard) 45 mg subcut [id number] lisinopril 5 mg PO DAILY lisinopril 10 mg PO DAILY omeprazole 20 mg PO DAILY prednisone 50 mg PO DAILY ropinirole 2 mg PO BEDTIME tamsulosin 0.4 mg PO BEDTIME 90 days HPI HPI Comments History of Present Illness Details Aram is a very pleasant male. He is a patient of Dr. Garza. He is seen for the following urologic issues - prostate cancer metastatic to bone at diagnosis Biochemically stable, progressive disease on imaging Recommend oncology consult regarding lutetium Switch to daily enzalutamide GnRH and Prolia administered today 05/18 PSA 0.4 - GnRH and Prolia with enzalutamide - Bone Scan -Multifocal osseous disease, shows interval progression as well as new focal sites of osseous lesions as described above since the most recent prior study dated 10/14/2022, consistent with presumed progressive osseous metastatic disease in this patient with known malignancy of the prostate Overall slow progression of bony disease in setting of low PSA Maintaining high activity levels with walking and resistance training 3 times a week 01/16 P 0.2 - cycling enzalutamide, T 5 Prostate cancer: High risk, metastatic disease at diagnosis 03/15 PSA 1800 - last GnRH 10/18 Prostate cancer was diagnosed January 2020 - [place] on CT for respiratory issues - found to have extensive metastatic disease Diagnosis was reached by PSA at diagnosis 1800. The D'Claude (NCCN) risk category is High Risk (PSA > 20, Gl 8+, T3) 03/15 prostate biopsy 12 out of 12 core positive 70-100% - 92% of total tissue examined [place] 7, 8, 9 Locally invasive with perineural invasion and periprostatic fat Therapy for metastatic/CRPC included 03/15 Antiandrogen, Bicalutamide 03/21/20 GnRH. Recent labs included a PSA (prostate-specific antigen) 05/15 1.5. - 09/14 0.6 - 12/14 PSA 0.3, T 10, 03/16 PSA 0.2, T 8, 06/16 PSA 0.14 T 7, 12/15 0.13 T 5, 02/14 0.2 6, 06/17 0.1 7, 09/16 0.2 T 6 Recent imaging included 03/15, a CT (computed tomography) scan 03/15 - sclerotic spinal lesions, 09/14 unchanged - Bone Scan 09/14 no focal area of enhancement - 03/16 no progression of metastatic disease, 09/15 bone scan no progression of disease - DEXA scan 09/15 osteoporosis - 03/17 bone scan no focal areas of enhancement - 10/18 bone scan progression of areas of enhancement, minimal change in PSA Prominent new abnormalities in the left seventh rib and spinous process of T5 are noted and are strongly suspicious for metastatic disease Therapeutic plan: Continue with GnRH, antiandrogen and surveillance [facility] Medical History Benign prostatic hyperplasia with lower urinary tract symptoms Feeling of incomplete bladder emptying H/O urinary retention Neurogenic bladder Social History Alcohol intake: never Review of Systems Const Denies chills and Denies fever(s) Card Reports no additional complaints and Denies syncope Resp Denies cough GI Denies abdominal pain and Denies heartburn Reports as per HPI and Denies change in libido Neuro Denies syncope Psych Denies change in libido Endo Denies change in libido Physical Exam Const General: cooperative, healthy appearing, comfortable and no acute distress Orientation/consciousness: patient oriented x3 HEENT Face and sinus: Yes normal facial exam Mouth: moist mucous membranes Neck Neck: Yes normal visual inspection, Yes full ROM and Yes trachea midline Chest Chest palpation & inspection: normal inspection of the chest Resp Effort & Inspection: normal respiratory effort, able to speak in complete sentences and no respiratory distress GI Inspection: Yes normal to inspection Back/Spine/Pelvis Cervical Spine: normal cervical lordosis Thoracic/Lumbar Spine: thoracic and lumbar spine normal to inspection Skin General skin exam: no rashes or lesions noted Neuro General: patient oriented x3, gait normal, tone normal and moves all extremities Extrem General: Yes normal to inspection and Yes capillary refill normal Office Meds Prolia Performing Provider: Lukas Fish MD Administered by: Shikha Ponce RN on 05/17/23 09:18 Dose Route Admin Location Lot Number Expiration Date [facility] 60 mg subcut right arm [id number] 05/26/25 54145-541-89 [employer] Eligard (6 month) Performing Provider: Lukas Fish MD Administered by: Shikha Ponce RN on 05/17/23 09:18 Dose Route Admin Location Lot Number Expiration Date NDC [facility] 45 mg subcut left arm [id number] 07/27/24 02708-689-58 [employer] 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: Code(s): M81.8 - Other osteoporosis without current pathological fracture; T38.7X5A - Adverse effect of androgens and anabolic congeners, initial encounter (2) Prostate cancer metastatic to bone: Code(s): C61 - Malignant neoplasm of prostate; C79.51 - Secondary malignant neoplasm of bone Plan 3 month follow-up labs Theresa Yates referral for Lutium assessment Orders: Orders Prostate Specific Antigen 3 Months C61 - Malignant neoplasm of prostate, C79.51 - Secondary malignant neoplasm of bone Testosterone, Total 3 Months C61 - Malignant neoplasm of prostate, C79.51 - Secondary malignant neoplasm of bone [facility]B Leuprolide Injection - Practice Supplied Today C61 - Malignant neoplasm of prostate AMB Denosumab Injection Practice Supplied Today C61 - Malignant neoplasm of prostate, C79.51 - Secondary malignant neoplasm of bone, M81.8 - Other osteoporosis without current pathological fracture, T38.7X5A - Adverse effect of androgens and anabolic congeners, initial encounter Referrals Hematology & Oncology Referral C61 - Malignant neoplasm of prostate, C79.51 - Secondary malignant neoplasm of bone Patient Instructions: Imaging studies, laboratory and physical exam results were discussed and reviewed in detail. No major barriers to patient understanding were identified. An opportunity to ask questions regarding the treatment plan was provided. All questions were answered. The patient expressed understanding and agreement with the above treatment plan. The patient is aware they should contact our office by phone for worsening of their current condition or the appearance of new urologic symptoms. Compliance is encouraged with any medications and followup testing that is ordered. It is a privilege to participate in the urologic care of your patient. If you have any questions or concerns regarding treatment for the above conditions, or other urologic issues, please do not hesitate to contact me. The office telephone contact is [phone]. This note is constructed using voice recognition software. While every effort has been made to ensure accuracy public relations professional errors may have been included. Yours sincerely, Dr Lukas Fish MD, [facility] - Urology Providers of Expert, Compassionate Care for the Genitourinary System Coding Level of Care Code Est Pt Level 3 (53446) Diagnoses Osteoporosis due to androgen therapy M81.8; T38.7X5A Prostate cancer metastatic to bone C61; C79.51
== END 2023-05-17 10:13 | disposition home or self-care (01) ==
PROVIDERS: PCP Internal Medicine; Visit Provider Urology
DX: M81.8 Other osteoporosis without current pathological fracture (principal); T38.7X5A Adverse effect of androgens and anabolic congeners, initial encounter; C61 Malignant neoplasm of prostate; C79.51 Secondary malignant neoplasm of bone
CPT/HCPCS: 99213

== ENCOUNTER → 2023-05-17 09:13 | Outpatient (BNVA) | payer MEDICARE, MEDICAID, SELFPAY | PROVIDERS: Visit Provider Urology | DX: C61 Malignant neoplasm of prostate (principal); C79.51 Secondary malignant neoplasm of bone; M81.8 Other osteoporosis without current pathological fracture; T38.7X5D Adverse effect of androgens and anabolic congeners, subsequent encounter | CPT/HCPCS: 96372; 96402; 99212; J0897; J9217 ==

== ENCOUNTER 2023-08-01 07:40 | Outpatient (REF) | payer MEDICARE, MEDICAID, SELFPAY ==
[2023-08-01 11:22] LABS: Prostate Specific Antigen 0.71 ng/mL (<0.05-4.0)
[2023-08-05 01:19] LABS: Testosterone, Total 11 ng/dL (250-1100)
== END 2023-08-01 07:41 | disposition home or self-care (01) ==
LOC: HO.10HDL 07:40
PROVIDERS: Visit Provider Urology
DX: Z12.5 Encounter for screening for malignant neoplasm of prostate (principal); C61 Malignant neoplasm of prostate; C79.51 Secondary malignant neoplasm of bone
CPT/HCPCS: 36415; 84153; 84403

== ENCOUNTER 2023-08-02 10:47 | Outpatient (REF) | payer MEDICARE, MEDICAID, SELFPAY ==
--- NOTE | ~2023-08-02 | MM_ITS ---
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 COMPARISON: Baseline BD dated 07/29/2021. TECHNIQUE: Using a [employer] DXA System (software version: 13.1) manufactured by [employer], dual-energy x-ray absorptiometry was performed of the lumbar spine and left hip. The images are of good technical quality. Summary results are attached. FINDINGS: LEFT FEMUR, NECK: Current: BMD 0.941 g/cm2, Z-score 0.7, T-score -1.0, normal. Baseline: BMD 1.013 g/cm2. LEFT FEMUR, TOTAL: Current: BMD 0.961 g/cm2, Z-score 0.4, T-score -1.0, normal, 8.7% decrease from baseline (<5% change is not significant). Baseline: BMD 1.052 g/cm2. AP SPINE L1-L4: Current: BMD 1.385 g/cm2, Z-score 2.2, T-score 1.4, normal, 8.2% decrease from baseline (<5% change is not significant). Baseline: BMD 1.508 g/cm2. IDENTIFIED RISK FACTORS: Osteoporosis. HISTORY OF FRACTURE: None listed. MEDICATIONS: Calcium supplements or multivitamin, vitamin D, Prolia. MM/XR DEXA axial skeleton IMPRESSION: 1. DIAGNOSIS: Normal bone density based on the lowest T-score value of -1.0 in the femoral neck and total femur applying World Health Organization criteria. 2. 10-YEAR FRACTURE RISK PREDICTION, FRAX: According to the guidelines, FRAX calculation should only be performed on patients in the osteopenia bone density category. Therefore, FRAX was not performed on this patient. 3. Treatment Recommendations: NOF guidelines recommend consideration for treatment in postmenopausal women and men age 50 and older presenting with the following: -A hip or vertebral (clinical or morphometric) fracture. -T-score less than or equal to -2.5 at the femoral neck or spine after appropriate evaluation to exclude secondary causes. -Low bone mass at the hip or spine and a 10-year fracture probability by FRAX of greater than or equal to 3% for hip fracture or greater than or equal to 20% for major osteoporotic fracture based on the [place] adapted WHO algorithm. 4. Other Recommendations: All treatment decisions require clinical judgment and consideration of individual patient factors, including patient preferences, comorbidities, previous drug use, risk factors not captured in the FRAX model (e.g. frailty, falls, vitamin D deficiency, increased bone turnover, interval significant decline in bone density) and possible under or overestimation of fracture risk by FRAX. FUTURE SCAN RECOMMENDATION: People with diagnosed cases of osteoporosis or at high risk for fracture should have regular bone mineral density tests. For patients eligible for Medicare, routine testing is allowed once every 2 years. The testing frequency can be increased to one year for patients who have rapidly progressing disease, those who are receiving or discontinuing medical therapy to restore bone mass, or have additional risk factors.
== END 2023-08-02 10:48 | disposition home or self-care (01) ==
LOC: HO.MAMMO 10:47
PROVIDERS: PCP Internal Medicine; Visit Provider Urology
DX: Z13.820 Encounter for screening for osteoporosis (principal); M81.8 Other osteoporosis without current pathological fracture; T38.7X5A Adverse effect of androgens and anabolic congeners, initial encounter
CPT/HCPCS: 77080

== ENCOUNTER 2023-08-11 09:28 | Outpatient (REF) | payer MEDICARE, MEDICAID, SELFPAY ==
[2023-08-11 10:33] LABS: MANUAL DIFF FLAG NO
[2023-08-11 10:39] LABS: Basophils Absolute Auto 0.1 X10*3/uL (0.0-0.2); Basophils Percent Auto 1.2 % (0-2); Eosinophils Absolute Auto 0.4 X10*3/uL (0.0-0.4); Eosinophils Percent Auto 5.8 % (0-4); Hematocrit 34.5 % (42.0-52.0); Hemoglobin 11.1 g/dl (14.0-18.0); Imm Gran Abs Auto 0.07 X10*3/uL (0.00-0.03); Imm Gran Pct Auto 0.9 % (0.0-0.4); Lymphocytes Absolute Auto 1.3 X10*3/uL (1.2-4.9); Lymphocytes Percent Auto 16.8 % (20-40); Mean Corpuscular HGB Conc 32.2 g/dl (31.0-36.0); Mean Corpuscular Hemoglobin 32.3 pg (27.0-33.0); Mean Corpuscular Volume 100.3 fL (80.0-98.0); Monocytes Absolute Auto 0.7 X10*3/uL (0.1-1.2); Monocytes Percent Auto 9.9 % (2-11); NRBC Pct Auto 0.5 /100WBC (0.0-0.2); Neutrophils Absolute Auto 4.9 x10*3/uL (2.0-8.3); Neutrophils Percent Auto 65.4 % (45-73); Platelet Count 254 X10*3/uL (160-400); Red Blood Count 3.44 X10*6/uL (4.60-5.80); Red Cell Distribution Width 13.7 % (11.0-16.0); White Blood Count 7.5 X10*3/uL (4.8-10.8)
[2023-08-11 10:57] LABS: Alanine Aminotransferase 14 U/L (0-40); Albumin Level 3.5 g/dL (3.5-5.0); Alkaline Phosphatase 107 U/L (39-117); Anion Gap 12 (12-20); Aspartate Amino Transferase 22 U/L (5-37); Bilirubin Total 0.3 mg/dL (0.0-1.0); Blood Urea Nitrogen 15 mg/dL (9-16); Calcium 9.1 mg/dL (8.4-10.2); Carbon Dioxide 24 mmol/L (22-29); Chloride 106 mmol/L (96-108); Estimated Glomerular Filt Rate > 60; Glucose Random 110 mg/dL (60-115); Potassium 4.5 mmol/L (3.3-5.1); Sodium 137 mmol/L (135-145); Total Protein 8.4 g/dL (6.5-8.0)
[2023-08-11 11:11] LABS: Prostate Specific Antigen 0.66 ng/mL (<0.05-4.0)
== END 2023-08-11 09:29 | disposition home or self-care (01) ==
LOC: HO.10HDL 09:28
PROVIDERS: Visit Provider Internal Medicine Hematology & Oncology
DX: C61 Malignant neoplasm of prostate (principal); C79.51 Secondary malignant neoplasm of bone; Z12.5 Encounter for screening for malignant neoplasm of prostate
CPT/HCPCS: 36415; 80053; 84153; 85025

== ENCOUNTER 2023-08-17 09:12 | Outpatient (AMB) | payer MEDICARE, MEDICAID, SELFPAY ==
--- NOTE | 2023-08-17 09:12 | A.OFFVIS_ITS ---
Intake Intake Visit Reasons: 3m follow up Intake Note: Aram is an 82 year old male who presents today for a 3 month follow up telehealth appointment Allergies No Known Allergies [No Known Allergies*] Allergy (Verified 08/17/23 09:13) Medication List - Last Reconciled 08/17/23 by Lukas Fish MD albuterol sulfate 90 mcg/actuation 1 inh inhalation QID PRN amlodipine 5 mg PO DAILY benzonatate 100 mg PO TID PRN calcium carbonate 200 mg PO BID calcium carbonate (Calcium 500) 500 mg PO BID 90 days cholecalciferol (vitamin D3) 800 units PO DAILY 90 days enzalutamide 160 mg PO DAILY erythromycin-benzoyl peroxide 3-5 % topical fluoride (sodium) 1.1% appl PO BEDTIME leuprolide acetate (6 month) (Eligard) 45 mg subcut [id number] lisinopril 5 mg PO DAILY lisinopril 10 mg PO DAILY omeprazole 20 mg PO DAILY prednisone 50 mg PO DAILY ropinirole 2 mg PO BEDTIME tamsulosin 0.4 mg PO BEDTIME 90 days HPI HPI Comments History of Present Illness Details Aram is a very pleasant male. He is a patient of Dr. Garza. 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 05/18 PSA 0.4 - GnRH and Prolia with mikal lutamide - Bone Scan -Multifocal osseous disease, shows interval progression as well as new focal sites of osseous lesions as described above since the most recent prior study dated 10/14/2022, consistent with presumed progressive osseous metastatic disease in this patient with known malignancy of the prostate Overall slow progression of bony disease in setting of low PSA Maintaining high activity levels with walking and resistance training 3 times a week 01/16 P 0.2 - cycling enzalutamide, T 5 Prostate cancer: High risk, metastatic disease at diagnosis 03/15 PSA 1800 - last GnRH 05/18 Prostate cancer was diagnosed January 2020 - [place] on CT for respiratory issues - found to have extensive metastatic disease Diagnosis was reached by PSA at diagnosis 1800. The D'Claude (NCCN) risk category is High Risk (PSA > 20, Gl 8+, T3) 03/15 prostate biopsy 12 out of 12 core positive 70-100% - 92% of total tissue examined Celestino 7, 8, 9 Locally invasive with perineural invasion and periprostatic fat Therapy for metastatic/CRPC included 03/15 Antiandrogen, Bicalutamide 03/21/20 G nRH. Recent labs included a PSA (prostate-specific antigen) 05/15 1.5. - 09/14 0.6 - 12/14 PSA 0.3, T 10, 03/16 PSA 0.2, T 8, 06/16 PSA 0.14 T 7, 12/15 0.13 T 5, 02/14 0.2 6, 06/17 0.1 7, 09/16 0.2 T 6 Recent imaging included 03/15, a CT (computed tomography) scan 03/15 - sclerotic spinal lesions, 09/14 unchanged - Bone Scan 09/14 no focal area of enhancement - 03/16 no progression of metastatic disease, 09/15 bone scan no progression of disease - DEXA scan 09/15 osteoporosis - 03/17 bone scan no focal areas of enhancement - 10/18 bone scan progression of areas of enhancement, minimal change in PSA Prominent new abnormalities in the left seventh rib and spinous process of T5 are noted and are strongly suspicious for metastatic disease - 08/18 DEXA stable normal Therapeutic plan: Continue with GnRH, antiandrogen and surveillance [facility] Medical History Neurogenic bladder H/O urinary retention Benign prostatic hyperplasia with lower urinary tract symptoms Feeling of incomplete bladder emptying Alcohol intake: never Review of Systems Const All systems reviewed & are unremarkable except as noted in HPI and below Reports no additional complaints Resp Reports no additional complaints GI Reports no additional complaints Reports as per HPI Musc Reports no additional complaints Physical Exam Telemedicine evaluation Appropriate responses Regular breathing rate and rhythm HEENT Head: Yes normal to inspection Ears: hearing grossly normal bilaterally Eyes General: appearance normal, both eyes and all related structures Neck Neck: Yes normal visual inspection Chest Chest palpation & inspection: normal inspection of the chest Resp Effort & Inspection: normal respiratory effort and able to speak in complete sentences Assessment & Plan Assessment & Plan (1) Prostate cancer metastatic to bone: Code(s): C61 - Malignant neoplasm of prostate; C79.51 - Secondary malignant neoplasm of bone (2) Osteoporosis due to androgen therapy: Code(s): M81.8 - Other osteoporosis without current pathological fracture; T38.7X5A - Adverse effect of androgens and anabolic congeners, initial encounter Plan Continue therapy and imaging Orders: Orders Prostate Specific Antigen 3 Months C61 - Malignant neoplasm of prostate, C79.51 - Secondary malignant neoplasm of bone Testosterone, Total 3 Months C61 - Malignant neoplasm of prostate, C79.51 - Secondary malignant neoplasm of bone NM bone scan whole body 3 Months C61 - Malignant neoplasm of prostate, C79.51 - Secondary malignant neoplasm of bone Patient Instructions: Imaging studies, laboratory and physical exam results were discussed and reviewed in detail. No major barriers to patient understanding were identified. An opportunity to ask questions regarding the treatment plan was provided. All questions were answered. The patient expressed understanding and agreement with the above treatment plan. The patient is aware they should contact our office by phone for worsening of their current condition or the appearance of new urologic symptoms. Compliance is encouraged with any medications and followup testing that is ordered. It is a privilege to participate in the urologic care of your patient. If you have any questions or concerns regarding treatment for the above conditions, or other urologic issues, please do not hesitate to contact me. The office telephone contact is [phone]. This note is constructed using voice recognition software. While every effort has been made to ensure accuracy beader errors may have been included. Yours sincerely, Dr Lukas Fish MD, [facility] - Urology Providers of Expert, Compassionate Care for the Genitourinary System Telehealth Telehealth Location of provider rendering services: practice address Location of patient: address on file Patient Identification confirmed using: Name, : Yes Telehealth method: video Patient verbally consented to treatment: Yes Patient verbally consented to billing insurance company: Yes Patient informed of any privacy concerns related to visit: Yes Coding Level of Care Code Tele Est Pt Level 3 (95626) Diagnoses Prostate cancer metastatic to bone C61; C79.51 Osteoporosis due to androgen therapy M81.8; T38.7X5A
== END 2023-08-17 09:55 | disposition home or self-care (01) ==
LOC: HO.HUSH 09:12
PROVIDERS: PCP Internal Medicine; Visit Provider Urology
DX: C61 Malignant neoplasm of prostate (principal); C79.51 Secondary malignant neoplasm of bone; M81.8 Other osteoporosis without current pathological fracture; T38.7X5A Adverse effect of androgens and anabolic congeners, initial encounter
CPT/HCPCS: 99213

== ENCOUNTER → 2023-08-17 09:12 | Outpatient (BNVA) | payer MEDICARE, MEDICAID, SELFPAY | PROVIDERS: PCP Internal Medicine; Visit Provider Urology ==

== ENCOUNTER 2023-09-04 15:26 | Emergency (ER) | payer MEDICARE, OTHER, SELFPAY ==
--- NOTE | ~2023-09-04 | XR_ITS ---
Examination: Lumbar and dorsal spine. Clinical indications: Fall. Pain. COMPARISON: None. TECHNIQUE: 3 views dorsal spine and 3 views lumbar spine. FINDINGS: Lumbar spine: There is maintained lumbar lordosis with mild dextroscoliosis of dorsolumbar spine. There is diffuse osteopenia and heterogeneous bone appearance. No visible acute fracture or dislocation seen. The SI joints are symmetrical and normal. The soft tissues are normal. There is moderate stool in colon. Dorsal spine: There is normal thoracic kyphosis. The vertebral heights, alignment and disc heights are normal. There is no visible acute fracture, dislocation or subluxation seen. There is diffuse osteopenia. No soft tissue abnormality seen. XR/XR thoracic spine 2V IMPRESSION: 1. Mild dextroscoliosis of dorsolumbar spine. No visible acute fracture or dislocation seen. 2. There is diffuse osteopenia and heterogeneous bone appearance 3. Lumbar spine. 4. There is no visible acute fracture, dislocation or soft tissue abnormality seen in dorsal or lumbar spine.
--- NOTE | ~2023-09-04 | XR_ITS ---
Examination: Lumbar and dorsal spine. Clinical indications: Fall. Pain. COMPARISON: None. TECHNIQUE: 3 views dorsal spine and 3 views lumbar spine. FINDINGS: Lumbar spine: There is maintained lumbar lordosis with mild dextroscoliosis of dorsolumbar spine. There is diffuse osteopenia and heterogeneous bone appearance. No visible acute fracture or dislocation seen. The SI joints are symmetrical and normal. The soft tissues are normal. There is moderate stool in colon. Dorsal spine: There is normal thoracic kyphosis. The vertebral heights, alignment and disc heights are normal. There is no visible acute fracture, dislocation or subluxation seen. There is diffuse osteopenia. No soft tissue abnormality seen. XR/XR lumbar spine 2-3V IMPRESSION: 1. Mild dextroscoliosis of dorsolumbar spine. No visible acute fracture or dislocation seen. 2. There is diffuse osteopenia and heterogeneous bone appearance 3. Lumbar spine. 4. There is no visible acute fracture, dislocation or soft tissue abnormality seen in dorsal or lumbar spine.
[2023-09-04 16:22] VITALS: BP 200/90; PULSE 91; RESP 16; TEMP 36.8; O2SAT 97; BMI 27.7
--- NOTE | 2023-09-04 16:22 | ED.BACK ---
HPI - Back Pain/Injury General Chief Complaint: Back Pain/Injury Stated Complaint: severe back pain h/o prostate cancer Time Seen by Provider: 09/04/23 17:13 Source: patient and family Mode of arrival: ambulatory Limitations: no limitations History of Present Illness HPI Narrative: 82 yo with history prostate cancer with bony mets on oral chemo (enzalutamide) here with complaints of 3 weeks of mid/lower back pain. Had remote fall a few weeks ago with back strike but did not hit his head or have LOC. No radiation of pain. No numbness/tingling/weakness in the legs or in the groin. No bowel or bladder incontinence. No fevers/chills. Related Data Home Medications Medication Instructions Recorded Confirmed enzalutamide 40 mg capsule 160 mg PO DAILY 12/10/20 08/17/23 fluoride (sodium) 1.1 % dental appl PO BEDTIME 12/10/20 08/17/23 cream lisinopril 5 mg tablet 5 mg PO DAILY 12/10/20 08/17/23 omeprazole 20 mg capsule,delayed 20 mg PO DAILY 12/10/20 08/17/23 release ropinirole 2 mg tablet 2 mg PO BEDTIME 12/10/20 08/17/23 amlodipine 5 mg tablet 5 mg PO DAILY 06/11/21 08/17/23 erythromycin-benzoyl peroxide 3 topical 06/11/21 08/17/23 %-5 % topical gel lisinopril 10 mg tablet 10 mg PO DAILY 06/11/21 08/17/23 calcium carbonate 200 mg calcium 200 mg PO BID 03/12/22 08/17/23 (500 mg) chewable tablet leuprolide acetate (6 month) 45 mg 45 mg subcut [id number] 05/17/23 08/17/23 (6 month) subcutaneous syringe ([employer]) Previous Rx's Medication Instructions Recorded benzonatate 100 mg capsule 100 mg PO TID PRN cough #12 caps 02/03/22 prednisone 50 mg tablet 50 mg PO DAILY #3 tabs 02/03/22 tamsulosin 0.4 mg capsule 0.4 mg PO BEDTIME 90 days #90 caps 01/21/23 albuterol sulfate 90 mcg/actuation 1 inh inhalation QID PRN shortness 05/11/23 aerosol inhaler of breath or wheezing #8.5 grams cholecalciferol (vitamin D3) 10 800 unit PO DAILY 90 days #180 tabs 08/03/23 mcg (400 unit) tablet calcium carbonate 500 mg calcium 500 mg PO BID Prostate cancer 90 08/08/23 (1,250 mg) chewable tablet days #180 tabs (Calcium 500) lidocaine 5 % topical patch 1 patch topical DAILY #15 ea 09/04/23 (Lidoderm) oxycodone 5 mg tablet 5 mg PO Q8H PRN pain #15 tabs 09/04/23 Allergies Allergy/AdvReac Type Severity Reaction Status Date / Time No Known Allergies Allergy Verified 08/17/23 09:13 [No Known Allergies*] Review of Systems Review of Systems: Yes all other systems are reviewed and are negative Constitutional: Constitutional: Reports no additional constitutional complaints, Denies body ache(s), Denies chills, Denies fever(s), Denies headache(s) and Denies weakness Eyes: Eyes: Reports no additional eye complaints and Denies change in vision ENT: Reports system reviewed and no additional complaints, except as documented, Denies dizziness, Denies headache(s), Denies nasal congestion, Denies nasal discharge and Denies neck pain Cardiovascular: Cardiovascular: Reports no additional cardiovascular complaints, Denies chest pain, Denies leg edema and Denies dyspnea Respiratory: Respiratory: Reports no additional respiratory complaints, Denies cough and Denies dyspnea Gastrointestinal: Gastrointestinal: Reports no additional gastrointestinal complaints, Denies abdominal pain, Denies diarrhea, Denies nausea and Denies vomiting Genitourinary: Genitourinary: Denies urinary incontinence Musculoskeletal: Musculoskeletal: Reports no additional musculoskeletal complaints, Reports back pain, Denies arthralgias, Denies joint swelling, Denies neck pain, Denies numbness and Denies tingling Integumentary/Breasts: Skin/Breast: Reports system reviewed and no additional complaints, except as docu and Denies rash Neurologic: Reports system reviewed and no additional complaints, except as documented, Denies Abnormal speech present, Denies dizziness, Denies headache(s), Denies numbness, Denies tingling and Denies weakness PMFSH Past Medical History Attestation statement: The following information was validated with the patient. Source: old records reviewed and nursing notes reviewed Medical History Neurogenic bladder H/O urinary retention Benign prostatic hyperplasia with lower urinary tract symptoms Feeling of incomplete bladder emptying Social History Social History Alcohol intake: never Advance Directives: No Advance Directives Information Provided: No Physical Exam Vital Signs: Vital Signs: Last Vital Signs Temp 98.3 F 09/04/23 16:22 Pulse 91 09/04/23 16:22 Resp 16 09/04/23 16:22 BP 195/80 H 09/04/23 17:18 Pulse Ox 97 09/04/23 16:22 O2 Del Method Room Air 09/04/23 16:22 BMI result Body Mass Index 27.7 Const: General: cooperative, healthy appearing, comfortable and no acute distress Orientation/consciousness: patient oriented x3 Limitations: no limitations HEENT: Head: Yes normal to inspection Ears: hearing grossly normal bilaterally General nose exam: Normal external nose present Face and sinus: Yes normal facial exam Mouth: Normal oral and palatal mucosa present Throat: Yes posterior oropharynx normal Eyes: General: appearance normal, both eyes and all related structures Pupils: Equal, round and reactive pupils present Neck: Neck: Yes normal visual inspection Chest: Chest palpation & inspection: normal inspection of the chest Resp: Effort & Inspection: normal respiratory effort Auscultation: clear to auscultation bilaterally Cardio: Rate: regular rate Rhythm: regular rhythm Peripheral pulses: Peripheral pulses 2+ throughout GI: Inspection: Yes normal to inspection Palpation (GI): Soft to palpation and nontender Auscultation: normal bowel sounds Back/Spine/Pelvis: Other: TTP to upper lumbar mid spine with no palpable step offs or deformities. Thoracic/Lumbar Spine: thoracic and lumbar spine normal to inspection Skin: General skin exam: no rashes or lesions noted Neuro: General: patient oriented x3, no focal motor deficits and normal sensation to monofilament Cranial nerves: Yes Equal, round and reactive pupils present Cognition (Neuro): normal cognition Speech: No Abnormal speech present Gait exam (Neuro): Normal gait present Motor exam (neuro): 5/5 motor strength present throughout Sensory Exam: Normal double simultaneous stimulation for sensation Deep tendon reflexes (DTR's): Right patellar reflex intensity grade: 2+ and Left patellar reflex intensity grade: 2+ Extrem: General: Yes normal to inspection Course Course Course Narrative: This is a rapid medical exam. Deferred additional HPI, ROS, PE to primary provider. 82 yo male with history of prostate cancer with bony mets here with back pain x 3 weeks. Had remote fall. Bone scan from april shows multiple vertebral lesions. Will check x-ray d/t trauma history. Likely patient will need better pain control at home Will check x-ray VSS Reevaluation(s) Reevaluation #1: x-ray show no fracture. ? pain secondary to bony mets. Patient up and ambulatory with steady gait with no neuro deficits or red flag symptoms. Will send home with pain control. Reviewed worrisome sigs/symptoms with patient and when to seek additional care. Comfortable with discharge home Medical Decision Making Medical Decision Making MDM Narrative: 82 yo with history prostate cancer with bony mets on oral chemo (enzalutamide) here with complaints of 3 weeks of mid/lower back pain. Had remote fall a few weeks ago with back strike but did not hit his head or have LOC. No radiation of pain. No numbness/tingling/weakness in the legs or in the groin. No bowel or bladder incontinence. No fevers/chills. On exam patient has TTP to lumbar/thoracic spine with no step offs or deformities. No neuro deficits or red flag symptoms D/t reports of trauma will obtain x-ray. ?secondary to bony mets seen on nuclear medicine bone scan 04/2023 Differential Diagnosis Differential Diagnoses: The differential diagnosis associated with the presentation includes Bony mets, fracture Low concern for caude equina/cord compression, epidural abscess, AAA, ACS, renal colic or pyelo Admission/Observation Consideration of admission/observation: Escalation of care including admission/observation considered No neurological deficits or red flag symptoms to suggest need for emergent MRI, NSY evaluation and or admission/transfer Independent Interpretation I performed an independent interpretation of an: Plain X-Ray Interpretation: I independently reviewed the x-ray and agree with the rad report Radiology Impression Discussion of test interpretation with radiology: I have reviewed the radiologist's reading. Radiologist Impression: [address] [address] XRay Report Signed Patient: Aram Tena MR#: [id number] : 1940 Acct:[id number] Age/Sex: 82 / M ADM Date: 09/04/23 Loc: HO.ED Attending Dr: Ordering Physician: Lili Larsen NP Date of Service: 09/04/23 Procedure(s): XR lumbar spine 2-3V Accession Number(s): [id number] cc: Yayo Garza MD; Lili Larsen NP~ Examination: Lumbar and dorsal spine. Clinical indications: Fall. Pain. COMPARISON: None. TECHNIQUE: 3 views dorsal spine and 3 views lumbar spine. FINDINGS: Lumbar spine: There is maintained lumbar lordosis with mild dextroscoliosis of dorsolumbar spine. There is diffuse osteopenia and heterogeneous bone appearance. No visible acute fracture or dislocation seen. The SI joints are symmetrical and normal. The soft tissues are normal. There is moderate stool in colon. Dorsal spine: There is normal thoracic kyphosis. The vertebral heights, alignment and disc heights are normal. There is no visible acute fracture, dislocation or subluxation seen. There is diffuse osteopenia. No soft tissue abnormality seen. XR/XR lumbar spine 2-3V IMPRESSION: 1. Mild dextroscoliosis of dorsolumbar spine. No visible acute fracture or dislocation seen. 2. There is diffuse osteopenia and heterogeneous bone appearance 3. Lumbar spine. 4. There is no visible acute fracture, dislocation or soft tissue abnormality seen in dorsal or lumbar spine. Independent Historian Clinical information obtained from an independent historian. History obtained from or confirmed by: Other daughter External Record Review External record reviewed: Outpatient record and Prior outpatient radiology Reviewed nuclear medicine bone scan from 04/2023 which shows multiple lytic bone lesions -In the spine, interval increase in disease activity at posterior part of T5 and interval new focal increased radiotracer activity at T11, T10 and T7 to the right of the midline, also consistent with progressive osseous metastatic disease. Tests considered The following testing was considered but not selected: No neurological deficits or red flag symptoms to suggest need for emergent MRI Prescription Management I considered prescription management with: Pain Medication Chronic Conditions Patient?s care impacted by: Cancer Discharge Plan Discharge Clinical Impression: Prostate cancer metastatic to bone Patient Disposition: Home, Self-Care Instructions: Prostate Cancer (DC) Prescriptions: New lidocaine [Lidoderm] 5 % adhesive patch,medicated 1 patch topical DAILY Qty: 15 0RF Rx Instructions: leave on most painful area for up to 12 hrs oxycodone 5 mg tablet 5 mg PO Q8H PRN (Reason: pain) Qty: 15 0RF Rx Instructions: Partial Fill upon patient request. No Action tamsulosin 0.4 mg capsule 0.4 mg PO BEDTIME 90 Days Qty: 90 3RF cholecalciferol (vitamin D3) 10 mcg (400 unit) tablet 800 unit PO DAILY 90 Days Qty: 180 1RF calcium carbonate [Calcium 500] 500 mg calcium (1,250 mg) tablet,chewable 500 mg PO BID 90 Days Qty: 180 1RF benzonatate 100 mg capsule 100 mg PO TID PRN (Reason: cough) Qty: 12 0RF prednisone 50 mg tablet 50 mg PO DAILY Qty: 3 0RF albuterol sulfate 90 mcg/actuation HFA aerosol inhaler 1 inh inhalation QID PRN (Reason: shortness of breath or wheezing) Qty: 8.5 0RF ropinirole 2 mg tablet 2 mg PO BEDTIME lisinopril 5 mg tablet 5 mg PO DAILY omeprazole 20 mg capsule,delayed release(DR/EC) 20 mg PO DAILY Xtandi 40 mg capsule 160 mg PO DAILY fluoride (sodium) 1.1 % cream PO BEDTIME erythromycin-benzoyl peroxide 3-5 % gel topical amlodipine 5 mg tablet 5 mg PO DAILY lisinopril 10 mg tablet 10 mg PO DAILY calcium carbonate 200 mg calcium (500 mg) tablet,chewable 200 mg PO BID Eligard (6 month) 45 mg syringe 45 mg subcut [id number] Referrals: Yayo Garza MD [Primary Care Provider] - 1 week Interventions: ED Discharge Assessment Last Done: 09/04/23 17:25
[2023-09-04 17:18] VITALS: BP 195/80
== END 2023-09-04 17:28 | disposition home or self-care (01) ==
LOC: HO.ED 17:23
PROVIDERS: Emergency Provider Emergency Medicine; PCP Internal Medicine
DX: C61 Malignant neoplasm of prostate (principal); C79.51 Secondary malignant neoplasm of bone; N40.1 Benign prostatic hyperplasia with lower urinary tract symptoms; M54.50 Low back pain, unspecified; Z79.899 Other long term (current) drug therapy
CPT/HCPCS: 72070; 72100; 99282; 99283

== ENCOUNTER 2023-10-18 12:01 | Outpatient (REF) | payer MEDICARE, MEDICAID, SELFPAY ==
[2023-10-18 13:18] LABS: MANUAL DIFF FLAG NO
[2023-10-18 13:22] LABS: Basophils Percent Auto 0.6 % (0-2); Eosinophils Absolute Auto 0.2 X10*3/uL (0.0-0.4); Eosinophils Percent Auto 2.6 % (0-4); Hematocrit 29.1 % (42.0-52.0); Hemoglobin 9.3 g/dl (14.0-18.0); Imm Gran Abs Auto 0.05 X10*3/uL (0.00-0.03); Imm Gran Pct Auto 0.8 % (0.0-0.4); Lymphocytes Absolute Auto 0.8 X10*3/uL (1.2-4.9); Lymphocytes Percent Auto 13.2 % (20-40); Mean Corpuscular Hemoglobin 32.5 pg (27.0-33.0); Mean Corpuscular Volume 101.7 fL (80.0-98.0); Mean Platelet Volume 9.4 fL (9.4-12.4); Monocytes Absolute Auto 1.1 X10*3/uL (0.1-1.2); Monocytes Percent Auto 17.7 % (2-11); Neutrophils Absolute Auto 4.1 x10*3/uL (2.0-8.3); Neutrophils Percent Auto 65.1 % (45-73); Platelet Count 273 X10*3/uL (160-400); Red Blood Count 2.86 X10*6/uL (4.60-5.80); Red Cell Distribution Width 15.8 % (11.0-16.0); White Blood Count 6.2 X10*3/uL (4.8-10.8)
[2023-10-18 14:13] LABS: Vitamin B12 276 pg/mL (200-900)
[2023-10-18 14:41] LABS: Alanine Aminotransferase 12 U/L (0-40); Albumin Level 3.4 g/dL (3.5-5.0); Alkaline Phosphatase 98 U/L (39-117); Anion Gap 10 (12-20); Aspartate Amino Transferase 18 U/L (5-37); Bilirubin Total 0.4 mg/dL (0.0-1.0); Blood Urea Nitrogen 13 mg/dL (9-16); Calcium 9.4 mg/dL (8.4-10.2); Carbon Dioxide 29 mmol/L (22-29); Chloride 103 mmol/L (96-108); Estimated Glomerular Filt Rate > 60; Glucose Random 113 mg/dL (60-115); Iron 42 mcg/dL (45-160); Magnesium 1.9 mg/dL (1.6-2.6); Percent Iron Saturation 19 % (15-50); Sodium 137 mmol/L (135-145); Total Iron Binding Capacity 218 mcg/dL (228-428); Total Protein 7.1 g/dL (6.5-8.0); Unsaturated Iron Binding 176 ug/dL
== END 2023-10-18 12:02 | disposition home or self-care (01) ==
LOC: HO.10HDL 12:01
PROVIDERS: Visit Provider Internal Medicine
DX: D64.9 Anemia, unspecified (principal); I10 Essential (primary) hypertension; K21.9 Gastro-esophageal reflux disease without esophagitis; M54.9 Dorsalgia, unspecified; C61 Malignant neoplasm of prostate; N18.9 Chronic kidney disease, unspecified
CPT/HCPCS: 36415; 80053; 82607; 83540; 83735; 85025

== ENCOUNTER 2023-10-27 11:31 | Outpatient (AMB) | payer MEDICARE, SELFPAY ==
--- NOTE | 2023-10-27 11:02 | A.OFFVIS_ITS ---
Intake Intake Visit Reasons: follow up Intake Note: Patient presents today for a follow-up Meds- Prudence, Tamsulosin Allergies to Antibiotic- No Known Allergies Blood Thinner- Apixaban Allergies No Known Allergies [No Known Allergies*] Allergy (Verified 10/27/23 11:03) Medication List - Last Reconciled 10/27/23 by Lukas Fish MD albuterol sulfate 90 mcg/actuation 1 inh inhalation QID PRN amlodipine 5 mg PO DAILY apixaban (Eliquis DVT-PE Treat 30D Start) 0 mg PO benzonatate 100 mg PO TID PRN calcium carbonate 200 mg PO BID calcium carbonate (Calcium 500) 500 mg PO BID 90 days cholecalciferol (vitamin D3) 800 units PO DAILY 90 days enzalutamide 160 mg PO DAILY erythromycin-benzoyl peroxide 3-5 % topical fentanyl 25 mcg/hr 1 patch topical Q3D fluoride (sodium) 1.1% appl PO BEDTIME leuprolide acetate (6 month) (Eligard) 45 mg subcut [id number] lidocaine 5% (Lidoderm) 1 patch topical DAILY omeprazole 20 mg PO DAILY oxycodone 5 mg PO Q8H PRN prednisone 50 mg PO DAILY ropinirole 2 mg PO BEDTIME tamsulosin 0.4 mg PO BEDTIME 90 days HPI HPI Comments History of Present Illness Details Aram is a very pleasant male. He is a patient of Dr. Garza. 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 05/18 PSA 0.4 - GnRH and Prolia with mikal lutamide - Bone Scan -Multifocal osseous disease, shows interval progression as well as new focal sites of osseous lesions as described above since the most recent prior study dated 10/14/2022, consistent with presumed progressive osseous metastatic disease in this patient with known malignancy of the prostate Overall slow progression of bony disease in setting of low PSA Maintaining high activity levels with walking and resistance training 3 times a week 01/16 P 0.2 - cycling enzalutamide, T 5 Prostate cancer: High risk, metastatic disease at diagnosis 03/15 PSA 1800 - last GnRH 05/18 Prostate cancer was diagnosed January 2020 - [place] on CT for respiratory issues - found to have extensive metastatic disease Diagnosis was reached by PSA at diagnosis 1800. The [place]ude (NCCN) risk category is High Risk (PSA > 20, Gl 8+, T3) 03/15 prostate biopsy 12 out of 12 core positive 70-100% - 92% of total tissue examined [place] 7, 8, 9 Locally invasive with perineural invasion and periprostatic fat Therapy for metastatic/CRPC included 03/15 Antiandrogen, Bicalutamide 03/21/20 GnRH. Recent labs included a PSA (prostate-specific antigen) 05/15 1.5. - 09/14 0.6 - 12/14 PSA 0.3, T 10, 03/16 PSA 0.2, T 8, 06/16 PSA 0.14 T 7, 12/15 0.13 T 5, 02/14 0.2 6, 06/17 0.1 7, 09/16 0.2 T 6 Recent imaging included 03/15, a CT (computed tomography) scan 03/15 - sclerotic spinal lesions, 09/14 unchanged - Bone Scan 09/14 no focal area of enhancement - 03/16 no progression of metastatic disease, 09/15 bone scan no progression of disease - DEXA scan 09/15 osteoporosis - 03/17 bone scan no focal areas of enhancement - 10/18 bone scan progression of areas of enhancement, minimal change in PSA Prominent new abnormalities in the left seventh rib and spinous process of T5 are noted and are strongly suspicious for metastatic disease - 08/18 DEXA stable normal Therapeutic plan: Continue with GnRH, antiandrogen and surveillance [facility] Medical History Neurogenic bladder H/O urinary retention Benign prostatic hyperplasia with lower urinary tract symptoms Feeling of incomplete bladder emptying Social History Alcohol intake: never Review of Systems Const All systems reviewed & are unremarkable except as noted in HPI and below Reports no additional complaints Resp Reports no additional complaints GI Reports no additional complaints Reports as per HPI Musc Reports no additional complaints Physical Exam Telemedicine evaluation Appropriate responses Regular breathing rate and rhythm HEENT Head: Yes normal to inspection Ears: hearing grossly normal bilaterally Eyes General: appearance normal, both eyes and all related structures Neck Neck: Yes normal visual inspection Chest Chest palpation & inspection: normal inspection of the chest Resp Effort & Inspection: normal respiratory effort and able to speak in complete sentences Assessment & Plan Assessment & Plan (1) Overactive bladder: Code(s): N32.81 - Overactive bladder (2) Benign prostatic hyperplasia with lower urinary tract symptoms: Code(s): N40.1 - Benign prostatic hyperplasia with lower urinary tract symptoms (3) Prostate cancer metastatic to bone: Code(s): C61 - Malignant neoplasm of prostate; C79.51 - Secondary malignant neoplasm of bone Plan End of October GnRH +Prolia Trial oxybutynin Medications: New oxybutynin chloride ER 5 mg PO DAILY 30 days 30 tabs 1RF N32.81 - Overactive bladder, R39.15 - Urgency of urination Patient Instructions: Imaging studies, laboratory and physical exam results were discussed and reviewed in detail. No major barriers to patient understanding were identified. An opportunity to ask questions regarding the treatment plan was provided. All questions were answered. The patient expressed understanding and agreement with the above treatment plan. The patient is aware they should contact our office by phone for worsening of their current condition or the appearance of new urologic symptoms. Compliance is encouraged with any medications and followup testing that is ordered. It is a privilege to participate in the urologic care of your patient. If you have any questions or concerns regarding treatment for the above conditions, or other urologic issues, please do not hesitate to contact me. The office telephone contact is [phone]. This note is constructed using voice recognition software. While every effort has been made to ensure accuracy beater and pulper feeder errors may have been included. Yours sincerely, Dr Lukas Fish MD, [facility] - U[facility] Providers of Expert, Compassionate Care for the Genitourinary System Telehealth Telehealth Location of provider rendering services: practice address Location of patient: address on file Patient Identification confirmed using: Name, : Yes Telehealth method: video Patient verbally consented to treatment: Yes Patient verbally consented to billing insurance company: Yes Patient informed of any privacy concerns related to visit: Yes Coding Level of Care Code Est Pt Level 4 (36867) Diagnoses Overactive bladder N32.81 Benign prostatic hyperplasia with lower urinary tract symptoms N40.1 Prostate cancer metastatic to bone C61; C79.51
== END 2023-10-27 12:37 | disposition home or self-care (01) ==
LOC: HO.HUSH 11:31
PROVIDERS: PCP Internal Medicine; Visit Provider Urology
DX: N32.81 Overactive bladder (principal); N40.1 Benign prostatic hyperplasia with lower urinary tract symptoms; C61 Malignant neoplasm of prostate; C79.51 Secondary malignant neoplasm of bone
CPT/HCPCS: 99213

== ENCOUNTER → 2023-10-27 11:31 | Outpatient (BNVA) | payer MEDICARE, SELFPAY | PROVIDERS: PCP Internal Medicine; Visit Provider Urology ==